=== PATIENT | female | born 1945 | race Two or more races ===

== ENCOUNTER 2019-02-27 00:53 | Inpatient (IN) | payer OTHER ==
--- NOTE | 2019-02-27 01:14 | PDOC ---
History of Present Illness - General Stated Complaint: SHAKING/VOMITING Time Seen by Provider: 02/27/19 01:13 - History of Present Illness Initial Comments: 02/27/19 01:15 Ms. Navarro is a 73 yo female w/ pmh of HTN, HLD, Dementia. Son reports that starting at 2130 this evening patient started experiencing nausea and increased confusion. She then had 5 episodes of vomiting of food she had eaten earlier today. She also has been shaking since approximately 2330 this evening and experiencing chills. The patient denies chest pain, shortness of breath, headache and dizziness. Denies fever, diarrhea and constipation. Denies dysuria, frequency, urgency and hematuria. Past History - Past Medical History Allergies/Adverse Reactions: Allergies Allergy/AdvReac Type Severity Reaction Status Date / Time No Known Allergies Allergy Verified 02/27/19 02:04 Home Medications: Ambulatory Orders Atorvastatin Ca [Lipitor] 10 mg PO HS 02/27/19 Diltiazem HCl [Diltiazem 24Hr Cd] 180 mg PO DAILY 02/27/19 Donepezil HCl [Aricept -] 5 mg PO DAILY 02/27/19 Lisinopril/Hydrochlorothiazide [Lisinopril-Hctz 10-12.5 mg Tab] 1 each PO DAILY 02/27/19 Review of Systems - Review of Systems Comments:: 02/27/19 01:18 GENERAL/CONSTITUTIONAL: +Generalized shaking w/ chills. No fever. No weakness. HEAD, EYES, EARS, NOSE AND THROAT: No change in vision. No ear pain or discharge. No sore throat. CARDIOVASCULAR: No chest pain or shortness of breath RESPIRATORY: No cough, wheezing, or hemoptysis. GASTROINTESTINAL: +N/V as described. No diarrhea or constipation. GENITOURINARY: No dysuria, frequency, or change in urination. MUSCULOSKELETAL: No joint or muscle swelling or pain. No neck or back pain. SKIN: No rash NEUROLOGIC: No headache, vertigo, loss of consciousness, or change in strength/ sensation. ENDOCRINE: No increased thirst. No abnormal weight change HEMATOLOGIC/LYMPHATIC: No anemia, easy bleeding, or history of blood clots. ALLERGIC/IMMUNOLOGIC: No hives or skin allergy. *Physical Exam - Physical Exam Comments: 02/27/19 01:18 GENERAL: Awake, alert, and fully oriented, in no acute distress HEAD: No signs of trauma, normocephalic, atraumatic EYES: PERRLA, EOMI, sclera anicteric, conjunctiva clear ENT: Auricles normal inspection, hearing grossly normal, nares patent, oropharynx clear without exudates. Moist mucosa NECK: Normal ROM, supple, no lymphadenopathy, JVD, or masses LUNGS: No distress, speaks full sentences, clear to auscultation bilaterally HEART: Regular rate and rhythm, normal S1 and S2, no murmurs, rubs or gallops, peripheral pulses normal and equal bilaterally. ABDOMEN: Soft, nontender, normoactive bowel sounds. No guarding, no rebound. No masses EXTREMITIES: Normal inspection, Normal range of motion, no edema. No clubbing or cyanosis. NEUROLOGICAL: Cranial nerves II through XII grossly intact. Normal speech, normal gait, no focal sensorimotor deficits SKIN: Warm, Dry, normal turgor, no rashes or lesions noted. ED Treatment Course - LABORATORY CBC & Chemistry Diagram: 02/27/19 01:32 02/27/19 01:32 Medical Decision Making - Medical Decision Making 02/27/19 03:24 Ms. Navarro is a 73 yo female w/ pmh as described who presents for evaluation of symptoms concerning for sepsis vs. abdominal process. Patient evaluation started with sepsis r/o including CT abd/pelvis. Initial labs concerning for sodium to 119. Hypokalemia and elevated lactate also noted. Patient will require ICU for hyponatremia. Bedside US concerning for collapsible IVC and somewhat hyperdynamic heart raising concern for hypervolemia. Patient bladder full, kidney non-specific. Gall bladder non-inflamed appearing w/out gall stones. Patient currently pending CT Abdomen/Pelvis. 02/27/19 04:11 CT negative for acute process. Patient admitted to ICU for further care. Laboratory Results - last 24 hr 02/27/19 02/27/19 02/27/19 01:32 01:32 01:32 WBC 12.5 H RBC 4.65 Hgb 12.3 Hct 36.9 MCV 79.4 L MCH 26.4 MCHC 33.2 RDW 14.2 Plt Count 297 MPV 7.6 Absolute Neuts (auto) 9.6 H Neutrophils % 77.2 Lymphocytes % 13.4 Monocytes % 8.9 Eosinophils % 0.1 Basophils % 0.4 Nucleated RBC % 0 PT with INR 13.20 H INR 1.12 H PTT (Actin FS) 34.1 VBG pH 7.54 H POC VBG pCO2 27.1 L POC VBG pO2 23.0 L VBG HCO3 22.9 L VBG O2 Sat (Navi) 48.1 L VBG Base Excess 1.5 Sodium Potassium Chloride Carbon Dioxide Anion Gap BUN Creatinine Creat Clearance w eGFR Random Glucose Lactic Acid Calcium Total Bilirubin AST ALT Alkaline Phosphatase Troponin I Total Protein Albumin Urine Color Urine Appearance Urine pH Ur Specific [place] Urine Protein Urine Glucose (UA) Urine Ketones Urine Blood Urine Nitrite Urine Bilirubin Urine Urobilinogen Ur Leukocyte Esterase Urine WBC (Auto) Urine RBC (Auto) Urine Casts (Auto) U Epithel Cells (Auto) Urine Bacteria (Auto) 02/27/19 02/27/19 02/27/19 01:32 01:32 01:32 WBC RBC Hgb Hct MCV MCH MCHC RDW Plt Count MPV Absolute Neuts (auto) Neutrophils % Lymphocytes % Monocytes % Eosinophils % Basophils % Nucleated RBC % PT with INR INR PTT (Actin FS) VBG pH POC VBG pCO2 POC VBG pO2 VBG HCO3 VBG O2 Sat (Navi) VBG Base Excess Sodium 119 L* Potassium 3.3 L Chloride 82 L Carbon Dioxide 21 Anion Gap 16 BUN 8 Creatinine 0.9 Creat Clearance w eGFR 61.38 Random Glucose 200 H Lactic Acid 5.7 H* Calcium 8.6 Total Bilirubin 1.1 H AST 28 ALT 20 Alkaline Phosphatase 113 Troponin I < 0.02 Total Protein 7.5 Albumin 3.7 Urine Color Urine Appearance Urine pH Ur Specific [place] Urine Protein Urine Glucose (UA) Urine Ketones Urine Blood Urine Nitrite Urine Bilirubin Urine Urobilinogen Ur Leukocyte Esterase Urine WBC (Auto) Urine RBC (Auto) Urine Casts (Auto) U Epithel Cells (Auto) Urine Bacteria (Auto) 02/27/19 02:59 WBC RBC Hgb Hct MCV MCH MCHC RDW Plt Count MPV Absolute Neuts (auto) Neutrophils % Lymphocytes % Monocytes % Eosinophils % Basophils % Nucleated RBC % PT with INR INR PTT (Actin FS) VBG pH POC VBG pCO2 POC VBG pO2 VBG HCO3 VBG O2 Sat (Navi) VBG Base Excess Sodium Potassium Chloride Carbon Dioxide Anion Gap BUN Creatinine Creat Clearance w eGFR Random Glucose Lactic Acid Calcium Total Bilirubin AST ALT Alkaline Phosphatase Troponin I Total Protein Albumin Urine Color Yellow Urine Appearance Clear Urine pH 5.0 Ur Specific [place] 1.015 Urine Protein Negative Urine Glucose (UA) 3+ H Urine Ketones 2+ H Urine Blood Trace Urine Nitrite Negative Urine Bilirubin Negative Urine Urobilinogen 0.2 Ur Leukocyte Esterase Negative Urine WBC (Auto) 0 Urine RBC (Auto) 2 Urine Casts (Auto) 1 U Epithel Cells (Auto) 0.3 Urine Bacteria (Auto) 1.9 *DC/Admit/Observation/Transfer Diagnosis at time of Disposition: Hyponatremia, Hypovolemia, Lactic acidosis - Discharge Dispostion Decision to Admit order: Yes - Referrals - Patient Instructions - Post Discharge Activity
[2019-02-27] MEDS ORDERED: ONDANSETRON 4 MG/2 ML VIAL IVPUSH ONE (01:22)
[2019-02-27] MEDS ORDERED: SODIUM CHLORIDE 500 ML IV STA (01:22)
[2019-02-27] MEDS ORDERED: FAMOTIDINE 20 MG/50 ML IVPB 20 MG/50 ML MG IVPB ONE (01:25)
[2019-02-27 01:47] LABS: BASO % 0.4 % (0-2.0); EOS % 0.1 % (0-4.5); HEMATOCRIT 36.9 % (32.4-45.2); HEMOGLOBIN 12.3 GM/dL (10.7-15.3); LYMPH % 13.4 % (8-40); MCH 26.4 pg (25.7-33.7); MCHC 33.2 g/dl (32.0-36.0); MEAN CELL VOLUME 79.4 fl (80-96); MEAN PLT VOLUME 7.6 fl (7.5-11.1); MONO % 8.9 % (3.8-10.2); NEUT % 77.2 % (42.8-82.8); PLATELET COUNT 297 K/MM3 (134-434); RBC 4.65 M/mm3 (3.60-5.2); RDW 14.2 % (11.6-15.6); WHITE BLOOD COUNT 12.5 K/mm3 (4.0-10.0)
[2019-02-27 01:57] LABS: VENOUS PC02 27.1 mmHg (41-51); VENOUS PH 7.54 (7.31-7.41)
[2019-02-27 02:01] LABS: INR 1.12 (0.83-1.09); PROTHROMBIN TIME (PATIENT) 13.2 SEC (9.7-13.0)
[2019-02-27 02:04] LABS: ACTIVATED PTT 34.1 SECONDS (25.2-36.5)
[2019-02-27 02:15] LABS: ALBUMIN 3.7 g/dl (3.4-5.0); ALK PHOS 113 U/L (45-117); ANION GAP 16 MMOL/L (8-16); BILIRUBIN,TOTAL 1.1 mg/dL (0.2-1); BLOOD UREA NITROGEN 8 mg/dL (7-18); CALCIUM 8.6 mg/dL (8.5-10.1); CHLORIDE 82 mmol/L (98-107); CO2 21 mmol/L (21-32); CREATININE 0.9 mg/dL (0.55-1.3); GLUCOSE,RANDOM 200 mg/dL (74-106); POTASSIUM 3.3 mmol/L (3.5-5.1); SGOT/AST 28 U/L (15-37); SGPT/ALT 20 U/L (13-61); TOT PROT 7.5 g/dl (6.4-8.2)
[2019-02-27 02:19] LABS: SODIUM 119 mmol/L (136-145)
[2019-02-27] MEDS ORDERED: KCL 10 MEQ IVPB 10 MEQ/100 ML INFUS.BAG IVPB ONE ×2 (02:31→03:46)
[2019-02-27] MEDS: KCL 10 MEQ IVPB 10 MEQ/100 ML INFUS.BAG IVPB SCH ×3 (02:44→05:20)
--- NOTE | 2019-02-27 03:04 | PDOC ---
Attending Attestation - Resident Resident Name: Jhonatan Serrano - ED Attending Attestation I have performed the following: I have examined & evaluated the patient, The case was reviewed & discussed with the resident, I agree w/resident's findings & plan, Exceptions are as noted - HPI HPI: 02/27/19 02:56 73 yo F with h/o htn hld dementia here with one day worsening confusion n/v x 4. per her son who lives with her, pt has been more confused today. she has noted to have tremors. n/v c/o epigsatric pain. no urinary complaints. no trauma. no cough no congesetion. no fevers. - Physicial Exam PE: 02/27/19 02:59 awake confused. lungs clear bilaterally heart reg tachycardia. dry mucous membranes. abd soft nt nd. ext wwp. resting tremors noted. pt alert oriented to person. skin warm and dry. moves all four ext. - Medical Decision Making 02/27/19 03:00 73 yo F with h/o ht hld dementi here with ams, confusion n/v differential includes infection such as pna, uti, electrolyte abnoramlity, cholecystitis, hypokalemia, dehydration, uti, mi, plan ct a/p cxr labs ekg septic workup iv hydration antiemetics. focused ED us RUQ, indication epigastric pain n/v gallbladder scanned in two planes. no wall thickening, no stones, normal CBD <4mm. no pericholecystic fluid. impression: normal gallbladder focused ED ultrasound renal indication n/v abd pain r/o hydro bilateral kidneys scanned using curvilinear proble no hydronephrosis noted. bladder distended. impression: no hydronephrosis, distended bladder. ED focused TTE , indication evauate cardiac function good contractility noted, hyperdynamic. no pericardial effusion. ivc completely collapses with inspiration. impression: hypovolemia, hyperdynamic contracility. plan iv hydration. presumed hypovolemic hyponatreia. will repeat na, pt will be admitted to ICU, ct a/p pending. repleat potassium. ua r/o uti, cxr negat. ekg unremakrable. Heart Score/ECG Review #1 General ECG Interpretation: Sinus Rhythm, Normal Rate (89), Normal Intervals, No acute ischemic changes
--- NOTE | 2019-02-27 03:08 | PN ---
Teaching Attending Note Name of Resident: Yoandy Thompson ATTENDING PHYSICIAN STATEMENT I saw and evaluated the patient. I reviewed the resident's note and discussed the case with the resident. I agree with the resident's findings and plan as documented. SUBJECTIVE: Patient is a 73 year old woman with PMH of HTN, HLD and Dementia. Son reports that starting at 21:30 this evening patient started experiencing nausea and increased confusion. She then had 5 episodes of vomiting of food she had eaten earlier today. She also has been shaking since approximately 23:30 this evening and experiencing chills. The patient denies chest pain, shortness of breath, headache and dizziness. Denies fever, diarrhea and constipation. Denies dysuria , frequency, urgency and hematuria. OBJECTIVE: Alert, but restless and shivering Vital Signs Period Temp Pulse Resp BP Sys/Norris Pulse Ox Last 24 Hr 97.9 F 81 18 157/114 100 HEENT: No Jaundice, eye redness or discharge, PERRLA, EOMI. Normocephalic, atraumatic. External ears are normal and hearing is grossly intact. No nasal discharge. Neck: Supple, nontender. No palpable adenopathy or thyromegaly. No JVD Chest: Good effort. Clear to auscultation and percussion. Heart: Regular. No S3, rub or murmur Abdomen: Not distended, soft, nontender and no HSM. No rebound or guarding. Normal bowel sounds. Ext: Peripheral pulses intact. No leg edema. Skin: Warm and dry. No petechiae, rash or ecchymosis. Neuro: Alert. Oriented x3. CN 2-12 grossly intact. Mild confusion. Sensation grossly intact in all four extremities and DTR are symmetric. Psych: Appropriate mood and affect. Good insight. Current Medications Generic Name Dose Route Start Last Admin Trade Name Freq PRN Reason Stop Dose Admin Potassium Chloride 10 meq in 100 mls @ 100 mls/hr 02/27/19 02:30 02/27/19 02: 44 Potassium Chloride 10 Meq Premix Ivpb - IVPB 02/27/19 05:29 100 mls/hr Q60M DULCE Administration Abnormal Lab Results 02/27/19 02/27/19 02/27/19 01:32 01:32 01:32 WBC 12.5 H MCV 79.4 L Absolute Neuts (auto) 9.6 H PT with INR 13.20 H INR 1.12 H VBG pH 7.54 H POC VBG pCO2 27.1 L POC VBG pO2 23.0 L VBG HCO3 22.9 L VBG O2 Sat (Navi) 48.1 L Sodium Potassium Chloride Random Glucose Lactic Acid Total Bilirubin 02/27/19 02/27/19 01:32 01:32 WBC MCV Absolute Neuts (auto) PT with INR INR VBG pH POC VBG pCO2 POC VBG pO2 VBG HCO3 VBG O2 Sat (Navi) Sodium 119 L* Potassium 3.3 L Chloride 82 L Random Glucose 200 H Lactic Acid 5.7 H* Total Bilirubin 1.1 H ASSESSMENT AND PLAN: 1. Sepsis - Findings consistent with sepsis, but source is unclear. Reportedly had hypothermia at Home. Gastroenteritis of an unclear etiology is likely culprit. Preliminary reading of abdomen/Pelvis CT is negative. Sepsis workup being done and will treat with IV vancomycin and zosyn pending culture report. Getting IV NS for lactic acidosis/sepsis but will adjust rate to avoid rapid rise in serum sodium. CXR shows hilar prominence, calcified aortic knob and LVH. Consult ID and GI. 2. Severe hyponatremia and hypokalemia - Etiology of severe hyponatremia is unclear. Patient's son insists she started taking Lisinopril-HCTZ only 3 days ago, but she has also been vomiting and has nausea. Unclear whether hyponatremia is chronic or acute! Was started on IV NS and IV KCL in the ER. Will check serum sodium q 4 hours to avoid rapid rise. Get serum and urine osmolarity, urine sodium, urine potassium and TSH. Associated hypophosphatemia and hypomagnesemia suggest surreptitious alcohol use which may be causing wasting of cations in the urine. Treat with IV MgSO4 and Neutraphos. Consult Nephrology. 3. Hypertension - Restart outpatient antihypertensive drugs except for Lisinopril-HCTZ, and revise regimen to ensure smooth [id number] good BP control. Nonpharmacologic measures to control hypertension like weight loss, salt restriction and exercise discussed. 4. DVT prophylaxis - Lovenox 40 mg SQ q 24 hours. 5. Advance directives - Full code
[2019-02-27 03:14] LABS: EPI CELLS 0.3 /HPF (0-5); URINE APPEARANCE CLEAR; URINE BACTERIA 1.9 /hpf (NEGATIVE); URINE BILIRUBIN NEGATIVE (NEGATIVE); URINE CASTS 1 /hpf (0-8); URINE COLOR YELLOW; URINE GLUCOSE (UA) 3+ (NEGATIVE); URINE KETONE 2+ (NEGATIVE); URINE LEUK ESTERASE NEGATIVE (NEGATIVE); URINE NITRITE NEGATIVE (NEGATIVE); URINE PROTEIN NEGATIVE (NEGATIVE); URINE RBC 2 /hpf (0-4); URINE UROBILINOGEN 0.2 mg/dL (0.2-1.0); URINE WBC 0 /hpf (0-5)
[2019-02-27] MEDS ORDERED: SODIUM CHLORIDE 1,000 ML IV STA (03:25)
--- NOTE | 2019-02-27 04:27 | CONSULT ---
Consultation: REQUESTING PROVIDER: CONSULT REQUEST: We have been asked to medically evaluate this patient for ( symptomatic hyponatremia---ICU admission). HISTORY OF PRESENT ILLNESS: Patient is a 73 year old female was brought in to the ED from home by her son after she was found to have vomiting and confusion. As per the patients son, his daughter (11 year old) called him at work around 9pm last night and mentioned her grand mother has been having nausea, vomiting and is more confused. Patient's son reached home after half an hour and found patient vomiting-4 episodes, non bloody, non bilious, containing food particles, she was complaining of nausea, abdominal pain, chest pain and shortness of breath. Temperature at home was 96.2 F twice. He gave her Gasex and water but she couldn 't tolerate. Hence brought in to the ED for further evaluation. Patient has a h/o dementia, has short term memory loss since 1-2 years, saw Dr. Ramirez last week and was started on Donepezil. She was also seen by her primary physician last week and dose of Cardizem was increased from 120-180 mg and Lisinopril/HCTZ was added x 3 days ago. Bowel/Bladder habit normal. Sleep/Appetite normal. Drinks about 1 L of water/day. On arrival to the ED, patient was afebrile, labs significant for hyponatremia Na of 119, K-3.3, Lactic acid 5.7. Was given 2 L of IV Normal Saline, Zofran in the ED then brought in to the ICU for further management. As per ED physician they did a bedside ultrasound, found collapsable IVC. Was given 2L of Normal Saline. Upon assessment in ICU, patient is confused (difficult to assess as patient has baseline dementia), as per son who is at bed side, she is more confused. Patient is still nauseaous. Denies headache, blurring of vision, tingling, numbness, any focal neurological deficits, chest pain, shortness of breath, palpitations, abdominal pain. Stat labs ordered. If sodium is not improving, will discuss case with Nephrology and start the patient on Hypertonic Saline. PAST MEDICAL HISTORY: Hypertension, HLD, Dementia ALLERGIES: NKDA PAST SURGICAL HISTORY: None reported SOCIAL HISTORY: Smoking- Never smoked Alcohol- Rarely Drugs- Denies OCCUPATION: Retired [employer] (2010) TRAVEL: Not travelled recently. REVIEW OF SYSTEMS: CONSTITUTIONAL: Absent: fever, chills, diaphoresis, generalized weakness, malaise, loss of appetite, weight change HEENT: Absent: rhinorrhea, nasal congestion, throat pain, throat swelling, difficulty swallowing, mouth swelling, ear pain, eye pain, visual changes CARDIOVASCULAR: Absent: chest pain, syncope, palpitations, irregular heart rate, lightheadedness , peripheral edema RESPIRATORY: Absent: cough, shortness of breath, dyspnea with exertion, orthopnea, wheezing, stridor, hemoptysis GASTROINTESTINAL: Present: nausea, vomiting Absent: abdominal pain, abdominal distension, , diarrhea, constipation, melena, hematochezia GENITOURINARY: Absent: dysuria, frequency, urgency, hesitancy, hematuria, flank pain, genital pain MUSCULOSKELETAL: Absent: myalgia, arthralgia, joint swelling, back pain, neck pain SKIN: Absent: rash, itching, pallor HEMATOLOGIC/IMMUNOLOGIC: Absent: easy bleeding, easy bruising, lymphadenopathy, frequent infections ENDOCRINE: Absent: unexplained weight gain, unexplained weight loss, heat intolerance, cold intolerance NEUROLOGIC: Present: Confused. Absent: headache, focal weakness or paresthesias, dizziness, unsteady gait, seizure, mental status changes, bladder or bowel incontinence PSYCHIATRIC: Absent: anxiety, depression, suicidal or homicidal ideation, hallucinations. PHYSICAL EXAMINATION Vital Signs - 24 hr 02/27/19 02/27/19 02/27/19 01:00 01:19 04:06 Temperature 97.9 F 97.2 F L Pulse Rate 81 Respiratory 18 Rate Blood Pressure 157/114 H O2 Sat by Pulse 100 99 Oximetry (%) GENERAL: Elderly female, lying in bed, nausea, Awake, alert, and oriented x 3, in no acute distress. EYES: EOM intact, no pallor or icterus. EARS, NOSE, THROAT: Dry mucous membranes. NECK: Supple, No JVD. LUNGS: B/L breath sounds equal, no added sounds. HEART: Regular rate and rhythm, normal S1 and S2 without murmur. ABDOMEN: Soft, nontender, no organomegaly, BS +. MUSCULOSKELETAL: No CVA tenderness. UPPER EXTREMITIES: No peripheral edema. LOWER EXTREMITIES: No peripheral edema. NEUROLOGICAL: No facial drop, power 5/5 in all extremities, sensation intact. Cranial nerves II-XII intact. Normal speech. Gait not observed. PSYCHIATRIC: Cooperative. Poor eye contact. SKIN: No lesions or rashes. Laboratory Results - last 24 hr 02/27/19 02/27/19 02/27/19 01:32 01:32 01:32 WBC 12.5 H RBC 4.65 Hgb 12.3 Hct 36.9 MCV 79.4 L MCH 26.4 MCHC 33.2 RDW 14.2 Plt Count 297 MPV 7.6 Absolute Neuts (auto) 9.6 H Neutrophils % 77.2 Lymphocytes % 13.4 Monocytes % 8.9 Eosinophils % 0.1 Basophils % 0.4 Nucleated RBC % 0 PT with INR 13.20 H INR 1.12 H PTT (Actin FS) 34.1 VBG pH 7.54 H POC VBG pCO2 27.1 L POC VBG pO2 23.0 L VBG HCO3 22.9 L VBG O2 Sat (Navi) 48.1 L VBG Base Excess 1.5 Sodium Potassium Chloride Carbon Dioxide Anion Gap BUN Creatinine Creat Clearance w eGFR Random Glucose Lactic Acid Calcium Total Bilirubin AST ALT Alkaline Phosphatase Troponin I Total Protein Albumin Urine Color Urine Appearance Urine pH Ur Specific [place] Urine Protein Urine Glucose (UA) Urine Ketones Urine Blood Urine Nitrite Urine Bilirubin Urine Urobilinogen Ur Leukocyte Esterase Urine WBC (Auto) Urine RBC (Auto) Urine Casts (Auto) U Epithel Cells (Auto) Urine Bacteria (Auto) 02/27/19 02/27/19 02/27/19 01:32 01:32 01:32 WBC RBC Hgb Hct MCV MCH MCHC RDW Plt Count MPV Absolute Neuts (auto) Neutrophils % Lymphocytes % Monocytes % Eosinophils % Basophils % Nucleated RBC % PT with INR INR PTT (Actin FS) VBG pH POC VBG pCO2 POC VBG pO2 VBG HCO3 VBG O2 Sat (Navi) VBG Base Excess Sodium 119 L* Potassium 3.3 L Chloride 82 L Carbon Dioxide 21 Anion Gap 16 BUN 8 Creatinine 0.9 Creat Clearance w eGFR 61.38 Random Glucose 200 H Lactic Acid 5.7 H* Calcium 8.6 Total Bilirubin 1.1 H AST 28 ALT 20 Alkaline Phosphatase 113 Troponin I < 0.02 Total Protein 7.5 Albumin 3.7 Urine Color Urine Appearance Urine pH Ur Specific [place] Urine Protein Urine Glucose (UA) Urine Ketones Urine Blood Urine Nitrite Urine Bilirubin Urine Urobilinogen Ur Leukocyte Esterase Urine WBC (Auto) Urine RBC (Auto) Urine Casts (Auto) U Epithel Cells (Auto) Urine Bacteria (Auto) 02/27/19 02:59 WBC RBC Hgb Hct MCV MCH MCHC RDW Plt Count MPV Absolute Neuts (auto) Neutrophils % Lymphocytes % Monocytes % Eosinophils % Basophils % Nucleated RBC % PT with INR INR PTT (Actin FS) VBG pH POC VBG pCO2 POC VBG pO2 VBG HCO3 VBG O2 Sat (Navi) VBG Base Excess Sodium Potassium Chloride Carbon Dioxide Anion Gap BUN Creatinine Creat Clearance w eGFR Random Glucose Lactic Acid Calcium Total Bilirubin AST ALT Alkaline Phosphatase Troponin I Total Protein Albumin Urine Color Yellow Urine Appearance Clear Urine pH 5.0 Ur Specific [place] 1.015 Urine Protein Negative Urine Glucose (UA) 3+ H Urine Ketones 2+ H Urine Blood Trace Urine Nitrite Negative Urine Bilirubin Negative Urine Urobilinogen 0.2 Ur Leukocyte Esterase Negative Urine WBC (Auto) 0 Urine RBC (Auto) 2 Urine Casts (Auto) 1 U Epithel Cells (Auto) 0.3 Urine Bacteria (Auto) 1.9 Active Medications Generic Name Dose Route Start Last Admin Trade Name Freq PRN Reason Stop Dose Admin Potassium Chloride 10 meq in 100 mls @ 100 mls/hr 02/27/19 02:30 02/27/19 03: 59 Potassium Chloride 10 Meq Premix Ivpb - IVPB 02/27/19 05:29 100 mls/hr Q60M DULCE Administration ASSESSMENT/PLAN: Patient is a 73 year old female with past medical history of Hypertension, HLD, Dementia was brought in to the ED from home by her son after she was found to have nasuea, vomiting and more confused. # Symptomatic hyponatremia Presented with nausea, vomiting x 4 episodes. Could be secondary to HCTZ use which was started 3 days ago. Na 119 on arrival. Was given 2 L of Normal saline in the ED for dehydration given low sodium, lactic acidosis, dry mucus membranes Admitted in ICU Stat labs ordered. Depending on the repeat sodium, if it is not improving, will discuss case with Nephrology and start the patient on Hypertonic saline For now, hold IVF until the results of repeat lab work, serum osm/urine osm/ urine electrolytes ordered Discontinue HCTZ Keep NPO IV Zofran 4 mg Q6H PRN for nausea (Normal Qtc) White for I's and O's. Since admission, urinary output is 900 mls # Hypertensive emergency On arrival to the ICU, patient's BP was 180/120 mmhg on repeated Bp checks, son mentioned patient gets anxious. High Bp could be from anxiety, abdominal pain, vomiting Gave IV Labetolol 10mg with slight improvement in BP Significant change in diastolic BP when measured bilaterally. Plan is to check BP manually and if it is still elevated to start nicardipine drip and to do a CTA to r/o aortic dissection. # Lactic acidosis Lactic acid 5.7, could be from dehydration. However, would like to r/o infection. Patient is afebrile, leukocytosis of 12.1 Blood cultures/urine cultures sent. Repeat Lactic acid one dose of IV Vancomycin 1250 mg and IV Zosyn 3.375 mg ordered. # Hypokalemia/Hypophosphatemia/Hypomagnesemia Electrolyte imbalance could be from HCTZ use K-3.3. Was given K riders Mg-1.3; Phos-2.2, IV Mag 2gm and IV Phos ordered. Repeat labs at 10 am. # Chest pain Patient started complaining of chest pain upon arrival to the ICU. IV Morphine 2 mg given. Repeat trops pending # Abdominal pain c/o Epigastric burning IV Protonix given one dose, will continue. Abdominal/Pelvis CT done, report pending. # Dementia On Donepezil, Hold as patient is NPO # FEN Hold fluids until repeat Sodium Electrolytes Repleted, repeat labs at 10am NPO # Prophylaxis For DVT: Heparin 5000 IU sq TID For GI: On IV Protonix 40mg # Code Status: Full Code # Dispo: Continue to monitor in ICU. Illness, Investigation and plan of care explained to the patient's son. He verbalized understanding. Case discussed with Dr. Almonte. Dispo: We will continue to follow the patient. Thank you for this consultative opportunity.
[2019-02-27] MEDS ORDERED: ONDANSETRON 4 MG/2 ML VIAL IVPB PRN (05:11)
[2019-02-27] MEDS ORDERED: ONDANSETRON 4 MG/2 ML VIAL IVPUSH PRN (05:28)
--- NOTE | 2019-02-27 05:42 | HP ---
CHIEF COMPLAINT:confusion , vomiting PCP: HISTORY OF PRESENT ILLNESS: Patient is a 73 year old female was brought in to the ED from home by her son after she was found to have vomiting and confusion. As per the patients son, his daughter (11 year old) called him at work around 9pm last night and mentioned her grand mother has been having nausea, vomiting and is more confused. Patient's son reached home after half an hour and found patient vomiting-4 episodes, non bloody, non bilious, containing food particles, she was complaining of nausea, abdominal pain, chest pain and shortness of breath. Temperature at home was 96.2 F twice. He gave her Gasex and water but she couldn 't tolerate. Hence brought in to the ED for further evaluation. Patient has a h/o dementia, has short term memory loss since 1-2 years, saw Dr. Ramirez last week and was started on Donepezil. She was also seen by her primary physician last week and dose of Cardizem was increased from 120-180 mg and Lisinopril/HCTZ was added x 3 days ago. Bowel/Bladder habit normal. Sleep/Appetite normal. Drinks about 1 L of water/day. On arrival to the ED, patient was afebrile, labs significant for hyponatremia Na of 119, K-3.3, Lactic acid 5.7. Was given 2 L of IV Normal Saline, Zofran in the ED then brought in to the ICU for further management. As per ED physician they did a bedside ultrasound, found collapsable IVC. Was given 2L of Normal Saline. Upon assessment in ICU, patient is confused (difficult to assess as patient has baseline dementia), as per son who is at bed side, she is more confused. Patient is still nauseaous. Denies headache, blurring of vision, tingling, numbness, any focal neurological deficits, chest pain, shortness of breath, palpitations, abdominal pain. Stat labs ordered. If sodium is not improving, will discuss case with Nephrology and start the patient on Hypertonic Saline. Recent Travel:denies PAST MEDICAL HISTORY: as per HPI HTN , HLD, Dementia PAST SURGICAL HISTORY: none Social History: Smoking:denies Alcohol:denies Drugs: denies Family History:none Allergies No Known Allergies Allergy (Verified 02/27/19 02:04) HOME MEDICATIONS: Home Medications Medication Instructions Recorded Atorvastatin Ca [Lipitor] 10 mg PO HS 02/27/19 Diltiazem HCl [Diltiazem 24Hr Cd] 180 mg PO DAILY 02/27/19 Donepezil HCl [Aricept -] 5 mg PO DAILY 02/27/19 Lisinopril/Hydrochlorothiazide 1 each PO DAILY 02/27/19 [Lisinopril-Hctz 10-12.5 mg Tab] REVIEW OF SYSTEMS CONSTITUTIONAL: Absent: fever, chills, diaphoresis, generalized weakness, malaise, loss of appetite, weight change HEENT: Absent: rhinorrhea, nasal congestion, throat pain, throat swelling, difficulty swallowing, mouth swelling, ear pain, eye pain, visual changes CARDIOVASCULAR: Absent: chest pain, syncope, palpitations, irregular heart rate, lightheadedness , peripheral edema RESPIRATORY: Absent: cough, shortness of breath, dyspnea with exertion, orthopnea, wheezing, stridor, hemoptysis GASTROINTESTINAL: Absent: abdominal pain, abdominal distension, nausea, vomiting, diarrhea, constipation, melena, hematochezia GENITOURINARY: Absent: dysuria, frequency, urgency, hesitancy, hematuria, flank pain, genital pain MUSCULOSKELETAL: Absent: myalgia, arthralgia, joint swelling, back pain, neck pain SKIN: Absent: rash, itching, pallor HEMATOLOGIC/IMMUNOLOGIC: Absent: easy bleeding, easy bruising, lymphadenopathy, frequent infections ENDOCRINE: Absent: unexplained weight gain, unexplained weight loss, heat intolerance, cold intolerance NEUROLOGIC: Absent: headache, focal weakness or paresthesias, dizziness, unsteady gait, seizure, mental status changes, bladder or bowel incontinence PSYCHIATRIC: Absent: anxiety, depression, suicidal or homicidal ideation, hallucinations. PHYSICAL EXAMINATION Vital Signs - 24 hr 02/27/19 02/27/19 02/27/19 01:00 01:19 04:06 Temperature 97.9 F 97.2 F L Pulse Rate 81 Respiratory 18 Rate Blood Pressure 157/114 H O2 Sat by Pulse 100 99 Oximetry (%) 02/27/19 05:19 Temperature 97.2 F L Pulse Rate 80 Respiratory 18 Rate Blood Pressure 160/98 O2 Sat by Pulse 99 Oximetry (%) GENERAL: AAOx0 in moderate distress , confuse , but follow commands , HEAD: NC/AT EYES: EOMI, Conjunctiva clear, sclera anicteric ENT: dry mucous membrane , soft tissue mass in her upper palate NECK: Supple, no JVD LUNGS: CTA B/L, no crackles no wheezing no accessory muscle use. HEART: Sinus tachy , NSR, normal s1, s2, no M/R/G ABDOMEN: Soft, ND, NT, +BS 4 Q, no CVA Tenderness LOWER EXTREMITIES: no edema, +2DP pulse, NEUROLOGICAL: No focal deficit. gait not observed.CNII-CNXII grossly intact , strength 5/5 upper and lower ext , sensation intact , PSYCHIATRIC: Cooperative. follow commands SKIN: Warm, dry, Laboratory Results - last 24 hr 02/27/19 02/27/19 02/27/19 01:32 01:32 01:32 WBC 12.5 H RBC 4.65 Hgb 12.3 Hct 36.9 MCV 79.4 L MCH 26.4 MCHC 33.2 RDW 14.2 Plt Count 297 MPV 7.6 Absolute Neuts (auto) 9.6 H Neutrophils % 77.2 Lymphocytes % 13.4 Monocytes % 8.9 Eosinophils % 0.1 Basophils % 0.4 Nucleated RBC % 0 PT with INR 13.20 H INR 1.12 H PTT (Actin FS) 34.1 VBG pH 7.54 H POC VBG pCO2 27.1 L POC VBG pO2 23.0 L VBG HCO3 22.9 L VBG O2 Sat (Navi) 48.1 L VBG Base Excess 1.5 Sodium Potassium Chloride Carbon Dioxide Anion Gap BUN Creatinine Creat Clearance w eGFR Random Glucose Lactic Acid Calcium Total Bilirubin AST ALT Alkaline Phosphatase Troponin I Total Protein Albumin Urine Color Urine Appearance Urine pH Ur Specific [place] Urine Protein Urine Glucose (UA) Urine Ketones Urine Blood Urine Nitrite Urine Bilirubin Urine Urobilinogen Ur Leukocyte Esterase Urine WBC (Auto) Urine RBC (Auto) Urine Casts (Auto) U Epithel Cells (Auto) Urine Bacteria (Auto) 02/27/19 02/27/19 02/27/19 01:32 01:32 01:32 WBC RBC Hgb Hct MCV MCH MCHC RDW Plt Count MPV Absolute Neuts (auto) Neutrophils % Lymphocytes % Monocytes % Eosinophils % Basophils % Nucleated RBC % PT with INR INR PTT (Actin FS) VBG pH POC VBG pCO2 POC VBG pO2 VBG HCO3 VBG O2 Sat (Navi) VBG Base Excess Sodium 119 L* Potassium 3.3 L Chloride 82 L Carbon Dioxide 21 Anion Gap 16 BUN 8 Creatinine 0.9 Creat Clearance w eGFR 61.38 Random Glucose 200 H Lactic Acid 5.7 H* Calcium 8.6 Total Bilirubin 1.1 H AST 28 ALT 20 Alkaline Phosphatase 113 Troponin I < 0.02 Total Protein 7.5 Albumin 3.7 Urine Color Urine Appearance Urine pH Ur Specific [place] Urine Protein Urine Glucose (UA) Urine Ketones Urine Blood Urine Nitrite Urine Bilirubin Urine Urobilinogen Ur Leukocyte Esterase Urine WBC (Auto) Urine RBC (Auto) Urine Casts (Auto) U Epithel Cells (Auto) Urine Bacteria (Auto) 02/27/19 02:59 WBC RBC Hgb Hct MCV MCH MCHC RDW Plt Count MPV Absolute Neuts (auto) Neutrophils % Lymphocytes % Monocytes % Eosinophils % Basophils % Nucleated RBC % PT with INR INR PTT (Actin FS) VBG pH POC VBG pCO2 POC VBG pO2 VBG HCO3 VBG O2 Sat (Navi) VBG Base Excess Sodium Potassium Chloride Carbon Dioxide Anion Gap BUN Creatinine Creat Clearance w eGFR Random Glucose Lactic Acid Calcium Total Bilirubin AST ALT Alkaline Phosphatase Troponin I Total Protein Albumin Urine Color Yellow Urine Appearance Clear Urine pH 5.0 Ur Specific [place] 1.015 Urine Protein Negative Urine Glucose (UA) 3+ H Urine Ketones 2+ H Urine Blood Trace Urine Nitrite Negative Urine Bilirubin Negative Urine Urobilinogen 0.2 Ur Leukocyte Esterase Negative Urine WBC (Auto) 0 Urine RBC (Auto) 2 Urine Casts (Auto) 1 U Epithel Cells (Auto) 0.3 Urine Bacteria (Auto) 1.9 CBC, BMP 02/27/19 01:32 02/27/19 01:32 ASSESSMENT/PLAN: Patient is a 73 year old woman with PMH of HTN, HLD and Dementia. Son reports that starting at 21:30 this evening patient started experiencing nausea and increased confusion. She then had 5 episodes of vomiting of food she had eaten earlier today. She also has been shaking since approximately 23:30 this evening and experiencing chills. admitted to icu for sever hyponatremia , ams and sever sepsis # severe sepsis * mccall cx * IV fluids * Vanco/zosyn * maintain BP * maintain o2 sat * Monitor in ICU * LA elevated , trend * zofran for nausea #sever Hyponatremia(Acute vs chronic ) , hypokalemia, Hypophosphatemia , hypomagnesia R.O SIADH vs meds SE * Na 119, corrected 117 * hypovolemic hyponatremic * IV fluids * KCl 10 Meq given in ED * repeat NA level Q 2 hr * Neuro check Q 2 hr * NA correction 4-6 meq in the first 24 hours * daily weight * I&O , urine out put , * DC HCTZ * P 2.2 replenish as needed * MG 1.2 replenish as needed * # Acute metabolic encephalopathy likely due to Electrolytes imbalance and sepsis vs worsening dementia * ABx and IV fluids * Aspiration precautions * Monitor in ICU * Nephroloy consult * neuro chek Q 2 hr * Neuroconsult # HTN * Hypertensive * will hold meds for now as pt is septic and BP might drop * monitor BP closely # Dementia * on Aricept hold for now # HLD * cont home meds when able to take po and hemodynamically stable # FEN * F: given IN ED 2l NS * E: monitor electrolytes closely * N: NPO # Proph * Dvts":SCDS, Hep SQ TID * PPI 40 IV daily # dispo * monitor in ICU icu Visit type - Emergency Visit Emergency Visit: Yes ED Registration Date: 02/27/19 Care time: The patient presented to the Emergency Department on the above date and was hospitalized for further evaluation of their emergent condition. - New Patient This patient is new to me today: Yes Date on this admission: 02/27/19 - Critical Care Critical Care patient: Yes Total Critical Care Time (in minutes): 45 Critical Care Statement: The care of this patient involved high complexity decision making to prevent further life threatening deterioration of the patient 's condition and/or to evaluate & treat vital organ system(s) failure or risk of failure.
[2019-02-27 05:45] LABS: MAGNESIUM 1.3 mg/dL (1.8-2.4); PHOSPHOROUS 2.2 mg/dL (2.5-4.9)
[2019-02-27] MEDS ORDERED: MAGNESIUM 2GM/50ML STERILE WATER IVPB IVPB ONE (05:46)
[2019-02-27] MEDS ORDERED: PANTOPRAZOLE SODIUM 40 MG VIAL IVPUSH ONE (05:49)
[2019-02-27] MEDS ORDERED: POTASSIUM PHOSPHATE 40 MM in DEXTROSE 5%-WATER - 500 ML IVPB ONE (05:49)
[2019-02-27] MEDS ORDERED: MORPHINE SULFATE 2 MG/ML VIAL IVPUSH ONE (05:50)
[2019-02-27] MEDS ORDERED: MORPHINE SULFATE 2 MG/ML VIAL ONE (05:53)
[2019-02-27] MEDS ORDERED: VANCOMYCIN HCL 1,250 MG in DEXTROSE 5%-WATER - 250 ML IVPB ONE (06:03)
[2019-02-27] MEDS ORDERED: PIPERACILLIN/TAZOB 3.375 GM 3.375 GM in DEXTROSE 5%-WATER - 50 ML IVPB ONE (06:03)
[2019-02-27] MEDS ORDERED: LABETALOL HCL 5 MG/1 ML (100MG/20 ML VIAL) IVPUSH ONE (06:39)
[2019-02-27 06:43] LABS: INR 1.13 (0.83-1.09); PROTHROMBIN TIME (PATIENT) 13.4 SEC (9.7-13.0)
[2019-02-27] MEDS ORDERED: LABETALOL HCL 5 MG/1 ML (100MG/20 ML VIAL) ONE (06:43)
[2019-02-27 06:55] LABS: HEMATOCRIT 37.7 % (32.4-45.2); HEMOGLOBIN 12.5 GM/dL (10.7-15.3); MCH 25.8 pg (25.7-33.7); MCHC 33.1 g/dl (32.0-36.0); MEAN CELL VOLUME 78.1 fl (80-96); MEAN PLT VOLUME 8.1 fl (7.5-11.1); PLATELET COUNT 298 K/MM3 (134-434); RBC 4.83 M/mm3 (3.60-5.2); RDW 14.1 % (11.6-15.6); WHITE BLOOD COUNT 13.6 K/mm3 (4.0-10.0)
[2019-02-27] MEDS ORDERED: HEPARIN NA (PORCINE) 5,000 UNITS/ML 1ML VIAL SQ SCH (07:00)
[2019-02-27] MEDS ORDERED: NICARDIPINE 25 MG in DEXTROSE 5%-WATER - 240 ML IVPB SCH (07:00)
[2019-02-27 07:43] LABS: ANION GAP 15 MMOL/L (8-16); BLOOD UREA NITROGEN 6 mg/dL (7-18); CALCIUM 8.6 mg/dL (8.5-10.1); CHLORIDE 86 mmol/L (98-107); CO2 20 mmol/L (21-32); CREATININE 0.9 mg/dL (0.55-1.3); GLUCOSE,RANDOM 148 mg/dL (74-106); LIPASE 170 U/L (73-393); MAGNESIUM 1.6 mg/dL (1.8-2.4); PHOSPHOROUS 2.1 mg/dL (2.5-4.9); POTASSIUM 4.1 mmol/L (3.5-5.1); SODIUM 120 mmol/L (136-145)
[2019-02-27] MEDS ORDERED: SODIUM CHLORIDE 1,000 ML IV SCH (09:30)
[2019-02-27] MEDS: PANTOPRAZOLE SODIUM 40 MG VIAL IVPUSH SCH (09:43)
--- NOTE | 2019-02-27 09:43 | PN ---
Progress Note (short form) - Note Progress Note: S: Pt seen and examined this AM. She states she is feeling better today though is unable to fully explain why she is here or what hospital she is in. Pt is having some confusion which the son states is not her baseline. O: Last Vital Signs Temp Pulse Resp BP Pulse Ox 97.3 F L 64 22 H 130/108 H 99 02/27/19 07:00 02/27/19 08:00 02/27/19 08:00 02/27/19 08:00 02/27/19 05:19 GEN: Awake and alert, oriented to self and type of building but not specific HEENT: PERRL, dry mucus membranes NECK: supple, nontender, nonenlarged HEART: RRR, no murmurs noted LUNGS: CTA b/l ABDOMEN: Soft, nontender EXTREMITIES: no peripheral edema NEURO: CN grossly in tact A/P: 73 year old female with past medical history of Hypertension, HLD, Dementia Admitted to the ICU for severe symptomatic Hyponatremia NEURO: -Symptomatic Hyponatremia Renal Consult appreciated 3% Saline @ 30 cc/hr BMP Q4 hours DDAVP 1 mcg Q8H Monitor for rapid correction and hold 3% if correcting too quickly -Dimentia Monitor for return to baseline CARDIO: -CV stable -HTN Continue home Diltiazem Hold lisinopril/HCTZ for now GI: -Nausea vomiting from undetermined source Hold off Zofran as n/v improving and QTc prolonged, monitor QTc if requires anti-emetic ENDOCRINE: -Monitor for endocrine causes of Hyponatremia -TSH low Monitor free T4 level Pt with no clinical signs of myxedema coma RENAL: -HypoNatremia as above FEN: -3% Saline @ 30 cc/hr, monitor to prevent rapid correction -monitor and replete -NPO PROPHYLAXIS: -Lovenox 40 mg SQ Daily DISPOSITION: Continue to monitor in the ICU
[2019-02-27] MEDS ORDERED: PT OWN MED DRAWER 7, Y5N ONE (09:46)
--- NOTE | 2019-02-27 09:57 | EKG ---
Test Reason : Blood Pressure : / mmHG Vent. Rate : 089 BPM Atrial Rate : 089 BPM P-R Int : 186 ms QRS Dur : 100 ms QT Int : 376 ms P-R-T Axes : 074 086 057 degrees QTc Int : 457 ms NORMAL SINUS RHYTHM NONSPECIFIC ST ABNORMALITY ABNORMAL ECG NO PREVIOUS ECGS AVAILABLE Confirmed by MARQUIS NEVILLE, ROBYN ([id number]) on 02/27/2019 9:57:19 AM Referred By: Confirmed By:ROBYN CHO MD
[2019-02-27] MEDS: MUPIROCIN 2% TOPICAL OINTMENT FOR DECOLONIZATION NS SCH ×2 (10:01→22:35)
[2019-02-27] MEDS: ENOXAPARIN NA (PORCINE) 40 MG/0.4 ML DISP.SYRIN SQ SCH (10:01)
--- NOTE | 2019-02-27 10:03 | PN ---
Progress Note (short form) - Note Progress Note: ID consult dictated 73 yo female with HTN and dementia admitted with acute onset of vomiting multiple times at home, "shaking", hypothermia at home-temp 96 no documented fevers no diarrhea no travel had a cold last week recent med adjustments include increase diltazem added atorvastin added aricept 3 days ago added lisinopril/hctz as well +lactic acidosis +hypothermia +hyponatremia hypokalemia etiology of her symptoms not clear ct scan prelim negative abdominal exam benign son at bedside reports mental status at baseline cannot r/o sepsis with hypothermia and lactic acidosis unclear if vomiting due to recent meds, ?aricept, ?viral, ?food- but no one else at home with vomiting- they ate the same food bp mds most likely contributed to hyponatremia agree with cultures given zosyn this am would switch to rocephin and f/u cultures f/u reading of ct scan correct hyponatremia Problem List - Problems (1) Vomiting Code(s): R11.10 - VOMITING, UNSPECIFIED (2) Lactic acidosis Code(s): E87.2 - ACIDOSIS (3) Hyponatremia Code(s): E87.1 - HYPO-OSMOLALITY AND HYPONATREMIA
[2019-02-27] MEDS ORDERED: SODIUM CHLORIDE 3% 500 ML/500 ML INFUS.BAG IV ONE ×3 (10:18→22:29)
[2019-02-27] MEDS ORDERED: DESMOPRESSIN ACETATE 4 MCG/ML AMP IVPB ONE (10:19)
--- NOTE | 2019-02-27 10:39 | CONSULT ---
Consult - text type - Consultation Consultation Note: Renal Consult for Hyponatremia This is a 73 year old woman with hx of Hypertension, Hyperlipidemia and Dementia who presented from home with AMS and Nausea with hyponatremia with serum sodium of 118. Son at the bedside who provided history. Pt was at her baseline MS 2 days prior (oriented x 2) but was confused and having N/V yesterday. Pt without hx of hyponatremia. Pt was recently started on serval anithypertensives recently including Lisinopril/HCTZ. Pt is in the ICU. S/p NS 1000cc in ED. Na improved to 120 but pt still not at baseline mental status. No CP, Abd pain, fever. Lactic acid is elevated. PMhx: as above Allergies: NKDA Family Hx: NC Social Hx: No T/A/D ROS: as per HPI Home Medications Medication Instructions Recorded Atorvastatin Ca [Lipitor] 10 mg PO HS 02/27/19 Diltiazem HCl [Diltiazem 24Hr Cd] 180 mg PO DAILY 02/27/19 Donepezil HCl [Aricept -] 5 mg PO DAILY 02/27/19 Lisinopril/Hydrochlorothiazide 1 each PO DAILY 02/27/19 [Lisinopril-Hctz 10-12.5 mg Tab] Vital Signs Temperature 97.3 F L 02/27/19 07:00 Pulse Rate 68 02/27/19 10:00 Respiratory Rate 158 H 02/27/19 10:00 Blood Pressure 179/149 H 02/27/19 10:00 O2 Sat by Pulse Oximetry (%) 99 02/27/19 05:19 Intake & Output 02/24/19 02/25/19 02/26/19 02/27/19 23:59 23:59 23:59 23:59 Intake Total 150 Output Total 1350 Balance -1200 Weight 48.3 kg NAD awake and alert but confused neck supple, no JVD MMM RRR, no M/R CTA soft NT/ND no LE edema, clubbing or cyanosis CBC, BMP 02/27/19 05:30 Current Medications Chlorhexidine Gluconate (Hibiclens For Decolonization -) 1 applic TP HS [facility] Desmopressin Acetate (Ddavp Injection -) 1 mcg IVPB ONCE ONE Stop: 02/27/19 10:20 Enoxaparin Sodium (Lovenox -) 40 mg SQ DAILY [facility] Last Admin: 02/27/19 10:01 Dose: 40 mg Potassium Phosphate 40 mm/ (Dextrose) 513.3333 mls @ 85.556 mls/hr IVPB ONCE ONE Stop: 02/27/19 11:48 Last Admin: 02/27/19 07:57 Dose: 85.556 mls/hr Sodium Chloride (Normal Saline -) 1,000 mls @ 100 mls/hr IV ASDIR [facility] Last Admin: 02/27/19 09:42 Dose: 100 mls/hr Sodium Chloride (Sodium Chloride 3%) 500 ml in 500 mls @ 30 mls/hr IV ASDIR ONE Stop: 02/28/19 02:57 Mupirocin (Bactroban Ointment (For Decolonization) -) 1 applic NS BID [facility] Stop: 03/04/19 09:59 Last Admin: 02/27/19 10:01 Dose: 1 applic Ondansetron HCl (Zofran Injection) 4 mg IVPUSH Q6H PRN PRN Reason: NAUSEA Pantoprazole Sodium (Protonix Iv) 40 mg IVPUSH DAILY [facility] Last Admin: 02/27/19 09:43 Dose: 40 mg 73 year old woman with hx of Hypertension, Hyperlipidemia and Dementia who presented from home with AMS and Nausea with hyponatremia with serum sodium of 118 #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) #Altered Mental status #Hypertension #Lactic acidosis #Hyperlipidemia Given mental status is not at baseline will start hypertonic saline will start at 30cc per, will also given DDAVP 1mcg Q8h to ensure there is not excessive correction Trend serum na Q4-6 hours and titrate as needed to active improvement of Na of ~ 8 in 24 hours Would give oral antihypertensvies (lisopril, diltiazem) and montior BP Goal BP < 150/100 Check CK levels (r/o rhabdo, ? shaking being seizures at home) Trend lactic acid levels hold statin pending CK levels Thank you Will follow Walter Yates DO
[2019-02-27 10:48] LABS: ALBUMIN 3.1 g/dl (3.4-5.0); ALK PHOS 102 U/L (45-117); ANION GAP 9 MMOL/L (8-16); BLOOD UREA NITROGEN 7 mg/dL (7-18); CALCIUM 7.9 mg/dL (8.5-10.1); CHLORIDE 86 mmol/L (98-107); CO2 24 mmol/L (21-32); CREATININE 0.7 mg/dL (0.55-1.3); GLUCOSE,RANDOM 206 mg/dL (74-106); MAGNESIUM 3.3 mg/dL (1.8-2.4); N-TERMINAL BNP 779.3 pg/ml (5-125); PHOSPHOROUS 4.1 mg/dL (2.5-4.9); POTASSIUM 3.9 mmol/L (3.5-5.1); SGOT/AST 33 U/L (15-37); SGPT/ALT 19 U/L (13-61); TOT PROT 6.5 g/dl (6.4-8.2)
[2019-02-27 10:55] LABS: SODIUM 119 mmol/L (136-145)
[2019-02-27 11:12] LABS: OSMOLALITY,SERUM 253 mosm/kg (278-305)
--- NOTE | 2019-02-27 11:18 | PN ---
Physical Exam: SUBJECTIVE: Patient seen and examined at bedside. No overnight events. No new complaints. As per son at bedside, less confused than on admission. Not at baseline.Continues to have nausea and NBNB vomiting. Denies CP,DIAMOND,SOB, palpitations, abdominal pain, fever or chills. OBJECTIVE: Vital Signs Period Temp Pulse Resp BP Sys/Norris Pulse Ox Last 24 Hr 97.2 F-97.9 F 64-92 18-158 130-180/67-149 99-100 GENERAL: Awake and alert, mild distress. HEAD: NCAT EYES: PERRL, EOMI, sclera anicteric, conjunctiva clear. No ptosis. ENT: moist mucous membranes. NECK: Trachea midline, full range of motion, supple. LUNGS: CTAB, no wheezes, no crackles, no accessory muscle use. HEART: RRR, S1, S2 without murmur, rub or gallop. ABDOMEN: Soft, NTND, NABS, no guarding, no rebound, no hepatosplenomegaly, no masses. EXTREMITIES: 2+ pulses, warm, well-perfused, no edema. NEUROLOGICAL: no focal def., gait not observed. PSYCH: Normal mood, normal affect. SKIN: Warm, dry, normal turgor, no rashes or lesions noted Laboratory Results - last 24 hr 02/27/19 02/27/19 02/27/19 01:32 01:32 01:32 WBC 12.5 H RBC 4.65 Hgb 12.3 Hct 36.9 MCV 79.4 L MCH 26.4 MCHC 33.2 RDW 14.2 Plt Count 297 MPV 7.6 Absolute Neuts (auto) 9.6 H Neutrophils % 77.2 Lymphocytes % 13.4 Monocytes % 8.9 Eosinophils % 0.1 Basophils % 0.4 Nucleated RBC % 0 PT with INR 13.20 H INR 1.12 H PTT (Actin FS) 34.1 VBG pH 7.54 H POC VBG pCO2 27.1 L POC VBG pO2 23.0 L VBG HCO3 22.9 L VBG O2 Sat (Navi) 48.1 L VBG Base Excess 1.5 Sodium Potassium Chloride Carbon Dioxide Anion Gap BUN Creatinine Creat Clearance w eGFR POC Glucometer Random Glucose Hemoglobin A1c % Serum Osmolality Lactic Acid Calcium Phosphorus Magnesium Total Bilirubin AST ALT Alkaline Phosphatase Troponin I B-Natriuretic Peptide Total Protein Albumin Lipase TSH Urine Color Urine Appearance Urine pH Ur Specific [place] Urine Protein Urine Glucose (UA) Urine Ketones Urine Blood Urine Nitrite Urine Bilirubin Urine Urobilinogen Ur Leukocyte Esterase Urine WBC (Auto) Urine RBC (Auto) Urine Casts (Auto) U Epithel Cells (Auto) Urine Bacteria (Auto) 02/27/19 02/27/19 02/27/19 01:32 01:32 01:32 WBC RBC Hgb Hct MCV MCH MCHC RDW Plt Count MPV Absolute Neuts (auto) Neutrophils % Lymphocytes % Monocytes % Eosinophils % Basophils % Nucleated RBC % PT with INR INR PTT (Actin FS) VBG pH POC VBG pCO2 POC VBG pO2 VBG HCO3 VBG O2 Sat (Navi) VBG Base Excess Sodium 119 L* Potassium 3.3 L Chloride 82 L Carbon Dioxide 21 Anion Gap 16 BUN 8 Creatinine 0.9 Creat Clearance w eGFR 61.38 POC Glucometer Random Glucose 200 H Hemoglobin A1c % Serum Osmolality Lactic Acid 5.7 H* Calcium 8.6 Phosphorus 2.2 L Magnesium 1.3 L Total Bilirubin 1.1 H AST 28 ALT 20 Alkaline Phosphatase 113 Troponin I < 0.02 B-Natriuretic Peptide Total Protein 7.5 Albumin 3.7 Lipase TSH Urine Color Urine Appearance Urine pH Ur Specific [place] Urine Protein Urine Glucose (UA) Urine Ketones Urine Blood Urine Nitrite Urine Bilirubin Urine Urobilinogen Ur Leukocyte Esterase Urine WBC (Auto) Urine RBC (Auto) Urine Casts (Auto) U Epithel Cells (Auto) Urine Bacteria (Auto) 02/27/19 02/27/19 02/27/19 02:59 05:30 05:30 WBC RBC Hgb Hct MCV MCH MCHC RDW Plt Count MPV Absolute Neuts (auto) Neutrophils % Lymphocytes % Monocytes % Eosinophils % Basophils % Nucleated RBC % PT with INR 13.40 H INR 1.13 H PTT (Actin FS) VBG pH POC VBG pCO2 POC VBG pO2 VBG HCO3 VBG O2 Sat (Navi) VBG Base Excess Sodium Potassium Chloride Carbon Dioxide Anion Gap BUN Creatinine Creat Clearance w eGFR POC Glucometer Random Glucose Hemoglobin A1c % Serum Osmolality Lactic Acid 5.2 H* Calcium Phosphorus Magnesium Total Bilirubin AST ALT Alkaline Phosphatase Troponin I B-Natriuretic Peptide Total Protein Albumin Lipase TSH Urine Color Yellow Urine Appearance Clear Urine pH 5.0 Ur Specific [place] 1.015 Urine Protein Negative Urine Glucose (UA) 3+ H Urine Ketones 2+ H Urine Blood Trace Urine Nitrite Negative Urine Bilirubin Negative Urine Urobilinogen 0.2 Ur Leukocyte Esterase Negative Urine WBC (Auto) 0 Urine RBC (Auto) 2 Urine Casts (Auto) 1 U Epithel Cells (Auto) 0.3 Urine Bacteria (Auto) 1.9 02/27/19 02/27/19 02/27/19 05:30 05:30 05:30 WBC 13.6 H RBC 4.83 Hgb 12.5 Hct 37.7 MCV 78.1 L MCH 25.8 MCHC 33.1 RDW 14.1 Plt Count 298 MPV 8.1 Absolute Neuts (auto) Neutrophils % Lymphocytes % Monocytes % Eosinophils % Basophils % Nucleated RBC % PT with INR INR PTT (Actin FS) VBG pH POC VBG pCO2 POC VBG pO2 VBG HCO3 VBG O2 Sat (Navi) VBG Base Excess Sodium 120 L Potassium 4.1 Chloride 86 L Carbon Dioxide 20 L Anion Gap 15 BUN 6 L Creatinine 0.9 Creat Clearance w eGFR 61.38 POC Glucometer Random Glucose 148 H Hemoglobin A1c % 5.6 Serum Osmolality 253 L Lactic Acid Calcium 8.6 Phosphorus 2.1 L Magnesium 1.6 L Total Bilirubin AST ALT Alkaline Phosphatase Troponin I 0.03 B-Natriuretic Peptide Total Protein Albumin Lipase 170 TSH 0.28 L Urine Color Urine Appearance Urine pH Ur Specific [place] Urine Protein Urine Glucose (UA) Urine Ketones Urine Blood Urine Nitrite Urine Bilirubin Urine Urobilinogen Ur Leukocyte Esterase Urine WBC (Auto) Urine RBC (Auto) Urine Casts (Auto) U Epithel Cells (Auto) Urine Bacteria (Auto) 02/27/19 02/27/19 08:32 09:55 WBC RBC Hgb Hct MCV MCH MCHC RDW Plt Count MPV Absolute Neuts (auto) Neutrophils % Lymphocytes % Monocytes % Eosinophils % Basophils % Nucleated RBC % PT with INR INR PTT (Actin FS) VBG pH POC VBG pCO2 POC VBG pO2 VBG HCO3 VBG O2 Sat (Navi) VBG Base Excess Sodium 119 L* Potassium 3.9 Chloride 86 L Carbon Dioxide 24 Anion Gap 9 BUN 7 Creatinine 0.7 Creat Clearance w eGFR 82.02 POC Glucometer 187 Random Glucose 206 H Hemoglobin A1c % Serum Osmolality Lactic Acid Calcium 7.9 L Phosphorus 4.1 Magnesium 3.3 H Total Bilirubin 2.0 H AST 33 ALT 19 Alkaline Phosphatase 102 Troponin I 0.02 B-Natriuretic Peptide 779.3 H Total Protein 6.5 Albumin 3.1 L Lipase TSH Urine Color Urine Appearance Urine pH Ur Specific [place] Urine Protein Urine Glucose (UA) Urine Ketones Urine Blood Urine Nitrite Urine Bilirubin Urine Urobilinogen Ur Leukocyte Esterase Urine WBC (Auto) Urine RBC (Auto) Urine Casts (Auto) U Epithel Cells (Auto) Urine Bacteria (Auto) Active Medications Generic Name Dose Route Start Last Admin Trade Name Freq PRN Reason Stop Dose Admin Chlorhexidine Gluconate 1 applic 02/27/19 22:00 Hibiclens For Decolonization - TP HS DULCE Desmopressin Acetate 1 mcg 02/27/19 10:19 Ddavp Injection - IVPB 02/27/19 10:20 ONCE ONE Enoxaparin Sodium 40 mg 02/27/19 10:00 02/27/19 10:01 Lovenox - SQ 40 mg DAILY DULCE Administration Potassium Phosphate 40 mm/ 513.3333 mls @ 85.556 mls/hr 02/27/19 05:49 07:57 Dextrose IVPB 02/27/19 11:48 85.556 mls/hr ONCE ONE Administration Sodium Chloride 1,000 mls @ 100 mls/hr 02/27/19 09:30 02/27/19 09:42 Normal Saline - IV 100 mls/hr ASDIR DULCE Administration Sodium Chloride 500 ml in 500 mls @ 30 mls/hr 02/27/19 10:18 Sodium Chloride 3% IV 02/28/19 02:57 ASDIR ONE Mupirocin 1 applic 02/27/19 10:00 02/27/19 10:01 Bactroban Ointment (For Decolonization) - NS 03/04/19 09:59 1 applic BID DULCE Administration Ondansetron HCl 4 mg 02/27/19 05:28 Zofran Injection IVPUSH Q6H PRN NAUSEA Pantoprazole Sodium 40 mg 02/27/19 10:00 02/27/19 09:43 Protonix Iv IVPUSH 40 mg DAILY DULCE Administration ASSESSMENT/PLAN: 73 yo F with PMHx of HTN, HLD, Dementia was brought in to the ED from home by her son after she was found to have nausea, vomiting and AMS admitted to ICU for further management. Problem List - Problems (1) Hyponatremia Assessment/Plan: 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) * Nephrology consult appreciated. * started on hypertonic saline @ 30cc/hr and titrate as needed to active improvement of Na of ~8 in 24 hours * DDAVP 1mcg Q8H * BMP Q4hr (2) HTN (hypertension) Assessment/Plan: hyponatremia most likely 2/2 HCTZ * Goal BP < 150/100 * Hold HCTZ * cont. Lisinopril and Diltiazem (3) HLD (hyperlipidemia) Assessment/Plan: Will check CK levels r/o rhabdo * Hold statin pending CK levels. (4) Altered mental state Assessment/Plan: most likely 2/2 hyponatremia * Neuro checks Q4H (5) Increased lactic acid level Assessment/Plan: Most likely 2/2 hypovolemia and decreased tissue perfusion * trend LA (6) Dementia Assessment/Plan: Donepezil held for AMS. Visit type - Emergency Visit Emergency Visit: Yes ED Registration Date: 02/27/19 Care time: The patient presented to the Emergency Department on the above date and was hospitalized for further evaluation of their emergent condition. - New Patient This patient is new to me today: Yes Date on this admission: 02/28/19 - Critical Care Critical Care patient: Yes Total Critical Care Time (in minutes): 63 Critical Care Statement: The care of this patient involved high complexity decision making to prevent further life threatening deterioration of the patient 's condition and/or to evaluate & treat vital organ system(s) failure or risk of failure.
--- NOTE | 2019-02-27 12:23 | CONS ---
DATE OF CONSULTATION: 02/27/2019 REQUESTED BY: Hospitalist service. This is a 73-year-old woman with a history of hypertension, hyperlipidemia, and dementia, all fairly recently diagnosed. She had really been reluctant to be in medical care until about a month ago she saw a PMD at [facility] at that time, was started on diltiazem and asked to return 3 weeks later. She followed up this past week, at which time her diltiazem was increased from 120 to 180 and lisinopril/hydrochlorothiazide was added. She also was started on donepezil, which she started on Wednesday. The patient, at baseline, is quite forgetful; she has very poor short-term memory. She is originally from [place]. She is . She lives with her son, his , and their 2 children. Yesterday, she was in her usual state of health, the son and were not home, when their 11-year-old daughter called them and said that she appeared confused and had had nausea. The son came home from work that evening and she had several episodes of vomiting food she had eaten earlier that day. She apparently ate for lunch the same food that her granddaughter had, which the family had eaten the previous evening. Son reports that she was shaking all over and experiencing chills. She was brought to the emergency room for further evaluation. The son also took her temperature at home and reports it was 96. Per the ER note, in the emergency room her temperature was 97.9 and her blood pressure originally was 157/114. She was noted on labs to be hyponatremic with a sodium of 119, potassium of 3.3, lactic acid was 5.7, white count was 12.5. She was started on fluid resuscitation. She had a CAT scan of her abdomen and pelvis. The preliminary reading questions whether she has esophagitis and is read is otherwise unremarkable. Formal reading is pending. She has had no diarrhea. She denies any abdominal pain. She is resting quite comfortably. Her past medical history is notable for a history of hypertension, hyperlipidemia, and dementia. There is no history of any surgery. She has no known drug allergies. Her medications include atorvastatin, diltiazem, donepezil, and lisinopril/hydrochlorothiazide. SOCIAL HISTORY: No history of cigarette, alcohol, or substance use. She lives with her son, his , and 2 granddaughters. She had a cold with some fever about a week ago, which resolved without going to see the doctor. She is originally from [place]. There is no history of any recent travel. REVIEW OF SYSTEMS: She currently is asymptomatic. She has no complaints whatsoever. She has stopped vomiting. PHYSICAL EXAMINATION: Vital Signs: Her temperature is 97.3. Pulse 68. Blood pressure is 172/84. Respiratory rate 19. She weighs 48 kg. HEENT: Normocephalic. Her eyes are anicteric. She has no thrush. Neck: Supple. Lungs: Clear to auscultation. Heart: Regular rate and rhythm. Abdomen: Soft, nontender. Extremities: Without edema. Skin: She has no rash. White count is 13.6, hemoglobin 12.5, platelets 298, INR is 1.1. BUN 6 and creatinine 0.9. Lactic acid this morning was 5.2. Urinalysis has negative leukocytes with 0 white cells. Urine and blood cultures are pending. Chest x-ray is unremarkable. On CAT scan of the abdomen and pelvis, preliminary questions whether she has an early esophagitis. In summary, this is a 73-year-old woman with vomiting, lactic acidosis, hypothermia, hyponatremia, and hypokalemia. Cannot rule out sepsis with the hypothermia and lactic acidosis. Unclear if the vomiting is due to recent medications, perhaps Aricept. Could it be viral? Could it just be food related? But no one else at home is sick with vomiting and they ate the same food. BP medications most likely contributed to her hyponatremia along with the vomiting. I would agree with the cultures that have been sent. She was given Zosyn this morning. Would switch to Rocephin and follow up her cultures, follow up reading of the CAT scan, and correct her hyponatremia. Further recommendations to follow. LORRI MILAN M.D. FREDDIE/[id number]
--- NOTE | 2019-02-27 12:32 | PN ---
Teaching Attending Note Name of Resident: Nolan Weaver ATTENDING PHYSICIAN STATEMENT I saw and evaluated the patient. I reviewed the resident's note and discussed the case with the resident. I agree with the resident's findings and plan as documented. SUBJECTIVE: Patient is confused. She appears comfortable. OBJECTIVE: Vital Signs Period Temp Pulse Resp BP Sys/Norris Pulse Ox Last 24 Hr 97.2 F-97.9 F 64-92 18-158 130-180/67-114 99-100 HEART: S1S2, RRR LUNGS: Clear ABDOMEN: Soft, non-tender, non-distended, normal BS EXTREMITIES: No edema Laboratory Results - last 24 hr 02/27/19 02/27/19 02/27/19 01:32 01:32 01:32 WBC 12.5 H RBC 4.65 Hgb 12.3 Hct 36.9 MCV 79.4 L MCH 26.4 MCHC 33.2 RDW 14.2 Plt Count 297 MPV 7.6 Absolute Neuts (auto) 9.6 H Neutrophils % 77.2 Lymphocytes % 13.4 Monocytes % 8.9 Eosinophils % 0.1 Basophils % 0.4 Nucleated RBC % 0 PT with INR 13.20 H INR 1.12 H PTT (Actin FS) 34.1 VBG pH 7.54 H POC VBG pCO2 27.1 L POC VBG pO2 23.0 L VBG HCO3 22.9 L VBG O2 Sat (Navi) 48.1 L VBG Base Excess 1.5 Sodium Potassium Chloride Carbon Dioxide Anion Gap BUN Creatinine Creat Clearance w eGFR POC Glucometer Random Glucose Hemoglobin A1c % Serum Osmolality Lactic Acid Calcium Phosphorus Magnesium Total Bilirubin AST ALT Alkaline Phosphatase Troponin I B-Natriuretic Peptide Total Protein Albumin Lipase TSH Urine Color Urine Appearance Urine pH Ur Specific [place] Urine Protein Urine Glucose (UA) Urine Ketones Urine Blood Urine Nitrite Urine Bilirubin Urine Urobilinogen Ur Leukocyte Esterase Urine WBC (Auto) Urine RBC (Auto) Urine Casts (Auto) U Epithel Cells (Auto) Urine Bacteria (Auto) 02/27/19 02/27/19 02/27/19 01:32 01:32 01:32 WBC RBC Hgb Hct MCV MCH MCHC RDW Plt Count MPV Absolute Neuts (auto) Neutrophils % Lymphocytes % Monocytes % Eosinophils % Basophils % Nucleated RBC % PT with INR INR PTT (Actin FS) VBG pH POC VBG pCO2 POC VBG pO2 VBG HCO3 VBG O2 Sat (Navi) VBG Base Excess Sodium 119 L* Potassium 3.3 L Chloride 82 L Carbon Dioxide 21 Anion Gap 16 BUN 8 Creatinine 0.9 Creat Clearance w eGFR 61.38 POC Glucometer Random Glucose 200 H Hemoglobin A1c % Serum Osmolality Lactic Acid 5.7 H* Calcium 8.6 Phosphorus 2.2 L Magnesium 1.3 L Total Bilirubin 1.1 H AST 28 ALT 20 Alkaline Phosphatase 113 Troponin I < 0.02 B-Natriuretic Peptide Total Protein 7.5 Albumin 3.7 Lipase TSH Urine Color Urine Appearance Urine pH Ur Specific [place] Urine Protein Urine Glucose (UA) Urine Ketones Urine Blood Urine Nitrite Urine Bilirubin Urine Urobilinogen Ur Leukocyte Esterase Urine WBC (Auto) Urine RBC (Auto) Urine Casts (Auto) U Epithel Cells (Auto) Urine Bacteria (Auto) 02/27/19 02/27/19 02/27/19 02:59 05:30 05:30 WBC RBC Hgb Hct MCV MCH MCHC RDW Plt Count MPV Absolute Neuts (auto) Neutrophils % Lymphocytes % Monocytes % Eosinophils % Basophils % Nucleated RBC % PT with INR 13.40 H INR 1.13 H PTT (Actin FS) VBG pH POC VBG pCO2 POC VBG pO2 VBG HCO3 VBG O2 Sat (Navi) VBG Base Excess Sodium Potassium Chloride Carbon Dioxide Anion Gap BUN Creatinine Creat Clearance w eGFR POC Glucometer Random Glucose Hemoglobin A1c % Serum Osmolality Lactic Acid 5.2 H* Calcium Phosphorus Magnesium Total Bilirubin AST ALT Alkaline Phosphatase Troponin I B-Natriuretic Peptide Total Protein Albumin Lipase TSH Urine Color Yellow Urine Appearance Clear Urine pH 5.0 Ur Specific [place] 1.015 Urine Protein Negative Urine Glucose (UA) 3+ H Urine Ketones 2+ H Urine Blood Trace Urine Nitrite Negative Urine Bilirubin Negative Urine Urobilinogen 0.2 Ur Leukocyte Esterase Negative Urine WBC (Auto) 0 Urine RBC (Auto) 2 Urine Casts (Auto) 1 U Epithel Cells (Auto) 0.3 Urine Bacteria (Auto) 1.9 02/27/19 02/27/19 02/27/19 05:30 05:30 05:30 WBC 13.6 H RBC 4.83 Hgb 12.5 Hct 37.7 MCV 78.1 L MCH 25.8 MCHC 33.1 RDW 14.1 Plt Count 298 MPV 8.1 Absolute Neuts (auto) Neutrophils % Lymphocytes % Monocytes % Eosinophils % Basophils % Nucleated RBC % PT with INR INR PTT (Actin FS) VBG pH POC VBG pCO2 POC VBG pO2 VBG HCO3 VBG O2 Sat (Navi) VBG Base Excess Sodium 120 L Potassium 4.1 Chloride 86 L Carbon Dioxide 20 L Anion Gap 15 BUN 6 L Creatinine 0.9 Creat Clearance w eGFR 61.38 POC Glucometer Random Glucose 148 H Hemoglobin A1c % 5.6 Serum Osmolality 253 L Lactic Acid Calcium 8.6 Phosphorus 2.1 L Magnesium 1.6 L Total Bilirubin AST ALT Alkaline Phosphatase Troponin I 0.03 B-Natriuretic Peptide Total Protein Albumin Lipase 170 TSH 0.28 L Urine Color Urine Appearance Urine pH Ur Specific [place] Urine Protein Urine Glucose (UA) Urine Ketones Urine Blood Urine Nitrite Urine Bilirubin Urine Urobilinogen Ur Leukocyte Esterase Urine WBC (Auto) Urine RBC (Auto) Urine Casts (Auto) U Epithel Cells (Auto) Urine Bacteria (Auto) 02/27/19 02/27/19 02/27/19 08:32 09:55 09:55 WBC RBC Hgb Hct MCV MCH MCHC RDW Plt Count MPV Absolute Neuts (auto) Neutrophils % Lymphocytes % Monocytes % Eosinophils % Basophils % Nucleated RBC % PT with INR INR PTT (Actin FS) VBG pH POC VBG pCO2 POC VBG pO2 VBG HCO3 VBG O2 Sat (Navi) VBG Base Excess Sodium Potassium Chloride Carbon Dioxide Anion Gap BUN Creatinine Creat Clearance w eGFR POC Glucometer 187 Random Glucose Hemoglobin A1c % Serum Osmolality Lactic Acid 1.8 Cancelled Calcium Phosphorus Magnesium Total Bilirubin AST ALT Alkaline Phosphatase Troponin I B-Natriuretic Peptide Total Protein Albumin Lipase TSH Urine Color Urine Appearance Urine pH Ur Specific [place] Urine Protein Urine Glucose (UA) Urine Ketones Urine Blood Urine Nitrite Urine Bilirubin Urine Urobilinogen Ur Leukocyte Esterase Urine WBC (Auto) Urine RBC (Auto) Urine Casts (Auto) U Epithel Cells (Auto) Urine Bacteria (Auto) 02/27/19 02/27/19 09:55 11:14 WBC RBC Hgb Hct MCV MCH MCHC RDW Plt Count MPV Absolute Neuts (auto) Neutrophils % Lymphocytes % Monocytes % Eosinophils % Basophils % Nucleated RBC % PT with INR INR PTT (Actin FS) VBG pH POC VBG pCO2 POC VBG pO2 VBG HCO3 VBG O2 Sat (Navi) VBG Base Excess Sodium 119 L* Potassium 3.9 Chloride 86 L Carbon Dioxide 24 Anion Gap 9 BUN 7 Creatinine 0.7 Creat Clearance w eGFR 82.02 POC Glucometer 214 Random Glucose 206 H Hemoglobin A1c % Serum Osmolality Lactic Acid Calcium 7.9 L Phosphorus 4.1 Magnesium 3.3 H Total Bilirubin 2.0 H AST 33 ALT 19 Alkaline Phosphatase 102 Troponin I 0.02 B-Natriuretic Peptide 779.3 H Total Protein 6.5 Albumin 3.1 L Lipase TSH Urine Color Urine Appearance Urine pH Ur Specific [place] Urine Protein Urine Glucose (UA) Urine Ketones Urine Blood Urine Nitrite Urine Bilirubin Urine Urobilinogen Ur Leukocyte Esterase Urine WBC (Auto) Urine RBC (Auto) Urine Casts (Auto) U Epithel Cells (Auto) Urine Bacteria (Auto) Current Medications Generic Name Dose Route Start Last Admin Trade Name Freq PRN Reason Stop Dose Admin Chlorhexidine Gluconate 1 applic 02/27/19 22:00 Hibiclens For Decolonization - TP HS DULCE Enoxaparin Sodium 40 mg 02/27/19 10:00 02/27/19 10:01 Lovenox - SQ 40 mg DAILY DULCE Administration Sodium Chloride 1,000 mls @ 100 mls/hr 02/27/19 09:30 02/27/19 09:42 Normal Saline - IV 100 mls/hr ASDIR DULCE Administration Sodium Chloride 500 ml in 500 mls @ 30 mls/hr 02/27/19 10:18 Sodium Chloride 3% IV 02/28/19 02:57 ASDIR ONE Mupirocin 1 applic 02/27/19 10:00 02/27/19 10:01 Bactroban Ointment (For Decolonization) - NS 03/04/19 09:59 1 applic BID DULCE Administration Ondansetron HCl 4 mg 02/27/19 05:28 Zofran Injection IVPUSH Q6H PRN NAUSEA Pantoprazole Sodium 40 mg 02/27/19 10:00 02/27/19 09:43 Protonix Iv IVPUSH 40 mg DAILY DULCE Administration ASSESSMENT AND PLAN: This is a 73 year old woman with a history of HTN, hyperlipidemia, dementia who presented to the ED with nausea, vomiting, and confusion. 1. Hyponatremia - Nephrology input appreciated - Normal saline changed to 3% saline - DDAVP started 2. Acute metabolic encephalopathy - Likely secondary to hyponatremia - On ceftriaxone empirically - Follow up blood, urine cultures 3. Lactic acidosis - Likely secondary to hypovolemia - Improved with IV fluid 4. HTN - Continue lisinopril, diltiazem - HCTZ discontinued secondary to hyponatremia 5. Hyperlipidemia - On Lipitor at home - held while awaiting CK 6. Dementia - On Aricept at home
--- NOTE | 2019-02-27 12:46 | PN ---
Teaching Attending Note Name of Resident: Surya Kirby ATTENDING PHYSICIAN STATEMENT I saw and evaluated the patient. I reviewed the resident's note and discussed the case with the resident. I agree with the resident's findings and plan as documented. SUBJECTIVE: Pt seen and examined in the ICU. Evaluated by renal, to start hypertonic saline. Remains confused per family at bedside. OBJECTIVE: Vital Signs Period Temp Pulse Resp BP Sys/Norris Pulse Ox Last 24 Hr 97.2 F-97.9 F 64-92 18-158 130-180/67-114 99-100 Intake & Output 02/24/19 02/25/19 02/26/19 02/27/19 23:59 23:59 23:59 23:59 Intake Total 150 Output Total 1350 Balance -1200 Weight 48.398 kg Gen: NAD but confused Heart: RRR Lung: decreased breath sounds at the bases Abd: soft, nontender Ext: no edema CBC, BMP 02/27/19 05:30 02/27/19 09:55 Active Medications Chlorhexidine Gluconate (Hibiclens For Decolonization -) 1 applic TP HS [facility] Enoxaparin Sodium (Lovenox -) 40 mg SQ DAILY [facility] Last Admin: 02/27/19 10:01 Dose: 40 mg Sodium Chloride (Normal Saline -) 1,000 mls @ 100 mls/hr IV ASDIR DULCE Last Admin: 02/27/19 09:42 Dose: 100 mls/hr Sodium Chloride (Sodium Chloride 3%) 500 ml in 500 mls @ 30 mls/hr IV ASDIR ONE Stop: 02/28/19 02:57 Mupirocin (Bactroban Ointment (For Decolonization) -) 1 applic NS BID [facility] Stop: 03/04/19 09:59 Last Admin: 02/27/19 10:01 Dose: 1 applic Ondansetron HCl (Zofran Injection) 4 mg IVPUSH Q6H PRN PRN Reason: NAUSEA Pantoprazole Sodium (Protonix Iv) 40 mg IVPUSH DAILY [facility] Last Admin: 02/27/19 09:43 Dose: 40 mg ASSESSMENT AND PLAN: Severe Hyponatremia Altered Mental Status Lactic Acidosis HTN Hyperlipidemia Dementia - hypertonic saline per renal - dDAVP - monitor sodium level closely - do not correct sodium >0.5mEq/hr - DVT prophylaxis - continue ICU monitoring critical care time spent in reviewing chart, evaluating patient and formulating plan 35 min
[2019-02-27 17:04] LABS: ANION GAP 9 MMOL/L (8-16); BLOOD UREA NITROGEN 5 mg/dL (7-18); CALCIUM 7.9 mg/dL (8.5-10.1); CHLORIDE 84 mmol/L (98-107); CO2 24 mmol/L (21-32); CREATININE 0.6 mg/dL (0.55-1.3); GLUCOSE,RANDOM 120 mg/dL (74-106); POTASSIUM 4.3 mmol/L (3.5-5.1)
[2019-02-27 17:13] LABS: SODIUM 117 mmol/L (136-145)
[2019-02-27 18:25] LABS: BILIRUBIN,DIRECT 0.4 mg/dL (0.0-0.2)
[2019-02-27 21:16] LABS: ANION GAP 10 MMOL/L (8-16); BLOOD UREA NITROGEN 6 mg/dL (7-18); CALCIUM 7.8 mg/dL (8.5-10.1); CHLORIDE 88 mmol/L (98-107); CO2 23 mmol/L (21-32); CREATININE 0.6 mg/dL (0.55-1.3); GLUCOSE,RANDOM 88 mg/dL (74-106); POTASSIUM 3.8 mmol/L (3.5-5.1); SODIUM 121 mmol/L (136-145)
[2019-02-27] MEDS ORDERED: HALOPERIDOL LACTATE 5 MG/ML IM ONE ×3 (22:10→22:37)
--- NOTE | 2019-02-27 22:10 | PN ---
Progress Note (short form) - Note Progress Note: Patient is restless, trying to get out of bed. Restraint applied- [place] and bilateral wrist restraint. After multiple attempts of counseling the patient and using restraints, she has been constantly trying to climb out of bed. Pulled out 4 IV lines from 7 pm- 10:33 pm on restraints. Halodol 2.5 mg IM given. Patient is still restless. Currently does not have an IV site. Will give another dose of 2.5 mg of IM Halodol and restart her on IV hypertonic saline. Repeat BMP noted, sodium of [address] Yates. Plan is to continue Hypertonic saline at 45 cc/hr. Repeat BMP is at 12:30 pm. If Sodium is 125 mEq on repeat BMP, will stop Hypertonic saline and repeat BMP at 6 am.
[2019-02-27] MEDS: CHLORHEXIDINE GLUCONATE 4% CLEANSER FOR DECOLONIZATION TP SCH (22:32)
[2019-02-27 23:51] LABS: ANION GAP 9 MMOL/L (8-16); BLOOD UREA NITROGEN 7 mg/dL (7-18); CALCIUM 8.2 mg/dL (8.5-10.1); CHLORIDE 90 mmol/L (98-107); CO2 23 mmol/L (21-32); CREATININE 0.8 mg/dL (0.55-1.3); GLUCOSE,RANDOM 100 mg/dL (74-106); SODIUM 122 mmol/L (136-145)
[2019-02-28] MEDS ORDERED: CEFTRIAXONE 1 GM in DEXTROSE 5%-WATER - 50 ML IVPB SCH (01:21)
[2019-02-28 03:45] LABS: ANION GAP 8 MMOL/L (8-16); BLOOD UREA NITROGEN 7 mg/dL (7-18); CALCIUM 8.1 mg/dL (8.5-10.1); CHLORIDE 96 mmol/L (98-107); CO2 25 mmol/L (21-32); CREATININE 0.8 mg/dL (0.55-1.3); GLUCOSE,RANDOM 104 mg/dL (74-106); POTASSIUM 3.9 mmol/L (3.5-5.1); SODIUM 128 mmol/L (136-145)
[2019-02-28 06:05] LABS: BASO % 0.4 % (0-2.0); HEMATOCRIT 36.6 % (32.4-45.2); LYMPH % 7.6 % (8-40); MCH 25.6 pg (25.7-33.7); MCHC 32.7 g/dl (32.0-36.0); MEAN CELL VOLUME 78.3 fl (80-96); MEAN PLT VOLUME 7.9 fl (7.5-11.1); MONO % 9.3 % (3.8-10.2); NEUT % 82.7 % (42.8-82.8); PLATELET COUNT 281 K/MM3 (134-434); RBC 4.67 M/mm3 (3.60-5.2); RDW 13.9 % (11.6-15.6); WHITE BLOOD COUNT 11.1 K/mm3 (4.0-10.0)
[2019-02-28 06:21] LABS: INR 1.13 (0.83-1.09); PROTHROMBIN TIME (PATIENT) 13.3 SEC (9.7-13.0)
[2019-02-28 06:41] LABS: ALBUMIN 3.2 g/dl (3.4-5.0); ALK PHOS 93 U/L (45-117); ANION GAP 8 MMOL/L (8-16); BILIRUBIN,TOTAL 2.2 mg/dL (0.2-1); BLOOD UREA NITROGEN 7 mg/dL (7-18); CALCIUM 8.2 mg/dL (8.5-10.1); CHLORIDE 99 mmol/L (98-107); CO2 24 mmol/L (21-32); CREATININE 0.7 mg/dL (0.55-1.3); GLUCOSE,RANDOM 100 mg/dL (74-106); MAGNESIUM 2.5 mg/dL (1.8-2.4); PHOSPHOROUS 2.9 mg/dL (2.5-4.9); SGOT/AST 84 U/L (15-37); SGPT/ALT 29 U/L (13-61); SODIUM 130 mmol/L (136-145); TOT PROT 6.4 g/dl (6.4-8.2)
[2019-02-28] MEDS ORDERED: DEXTROSE 5%-WATER - 1,000 ML IV SCH ×2 (07:00→08:32)
--- NOTE | 2019-02-28 07:59 | PN ---
Teaching Attending Note Name of Resident: Adelaida Trujillo ATTENDING PHYSICIAN STATEMENT I saw and evaluated the patient. I reviewed the resident's note and discussed the case with the resident. I agree with the resident's findings and plan as documented. SUBJECTIVE: Patient is feeling better, patient is less confused. In ICU. OBJECTIVE: Vital Signs Temperature 98.5 F 02/28/19 06:00 Pulse Rate 67 02/28/19 06:00 Respiratory Rate 18 02/28/19 06:00 Blood Pressure 114/51 L 02/28/19 06:00 O2 Sat by Pulse Oximetry (%) 99 02/27/19 16:38 GENERAL: The patient is awake, alert, and orientedx2 , in no acute distress. HEAD: Normal with no signs of trauma. EYES: PERRL, extraocular movements intact, sclera anicteric, conjunctiva clear. ENT: Ears normal, oropharynx clear without exudates, moist mucous membranes. NECK: Trachea midline, full range of motion, supple. LUNGS: decreased Breath sounds BL , no wheezes, no crackles, no accessory muscle use. HEART: Regular rate and rhythm, S1, S2 without murmur, rub or gallop. ABDOMEN: Soft, nontender, nondistended, normoactive bowel sounds, no guarding, no rebound, no hepatosplenomegaly, no masses appreciated. EXTREMITIES: 2+ pulses, warm, well-perfused, no edema. NEUROLOGICAL: Cranial nerves II through XII grossly intact. Normal speech, gait not observed. SKIN: Warm, dry, normal turgor, no rashes or lesions noted CBCD WBC 11.1 K/mm3 (4.0-10.0) H 02/28/19 05:30 RBC 4.67 M/mm3 (3.60-5.2) 02/28/19 05:30 Hgb 12.0 GM/dL (10.7-15.3) 02/28/19 05:30 Hct 36.6 % (32.4-45.2) 02/28/19 05:30 MCV 78.3 fl (80-96) L 02/28/19 05:30 MCHC 32.7 g/dl (32.0-36.0) 02/28/19 05:30 RDW 13.9 % (11.6-15.6) 02/28/19 05:30 Plt Count 281 K/MM3 (134-434) 02/28/19 05:30 MPV 7.9 fl (7.5-11.1) 02/28/19 05:30 CMP Sodium 130 mmol/L (136-145) L 02/28/19 05:30 Potassium 4.0 mmol/L (3.5-5.1) 02/28/19 05:30 Chloride 99 mmol/L (98-107) 02/28/19 05:30 Carbon Dioxide 24 mmol/L (21-32) 02/28/19 05:30 Anion Gap 8 MMOL/L (8-16) 02/28/19 05:30 BUN 7 mg/dL (7-18) 02/28/19 05:30 Creatinine 0.7 mg/dL (0.55-1.3) 02/28/19 05:30 Creat Clearance w eGFR 82.02 (>60) 02/28/19 05:30 Random Glucose 100 mg/dL (74-106) 02/28/19 05:30 Calcium 8.2 mg/dL (8.5-10.1) L 02/28/19 05:30 Total Bilirubin 2.2 mg/dL (0.2-1) H 02/28/19 05:30 AST 84 U/L (15-37) H 02/28/19 05:30 ALT 29 U/L (13-61) 02/28/19 05:30 Alkaline Phosphatase 93 U/L (45-117) 02/28/19 05:30 Total Protein 6.4 g/dl (6.4-8.2) 02/28/19 05:30 Albumin 3.2 g/dl (3.4-5.0) L 02/28/19 05:30 CARDIAC ENZYMES Creatine Kinase 1506 U/L (26-192) H 02/27/19 19:40 Troponin I 0.03 ng/ml (0.00-0.05) 02/27/19 12:14 Current Medications Generic Name Dose Route Start Last Admin Trade Name Freq PRN Reason Stop Dose Admin Chlorhexidine Gluconate 1 applic 02/27/19 22:00 02/27/19 22:32 Hibiclens For Decolonization - TP 1 applic HS DULCE Administration Diltiazem HCl 180 mg 02/27/19 16:45 02/27/19 17:39 Cardizem Cd - PO 180 mg DAILY DULCE Administration Enoxaparin Sodium 40 mg 02/27/19 10:00 02/27/19 10:01 Lovenox - SQ 40 mg DAILY DULCE Administration Ceftriaxone Sodium 1 gm/ 50 mls @ 100 mls/hr 02/28/19 01:21 02/28/19 02:22 Dextrose IVPB 100 mls/hr DAILY DULCE Administration Protocol Dextrose 1,000 mls @ 42 mls/hr 02/28/19 07:00 D5w - IV .[id number] DULCE Mupirocin 1 applic 02/27/19 10:00 02/27/19 22:35 Bactroban Ointment (For Decolonization) - NS 03/04/19 09:59 1 applic BID DULCE Administration Ondansetron HCl 4 mg 02/27/19 05:28 Zofran Injection IVPUSH Q6H PRN NAUSEA Pantoprazole Sodium 40 mg 02/27/19 10:00 02/27/19 09:43 Protonix Iv IVPUSH 40 mg DAILY DULCE Administration Home Medications Medication Instructions Recorded Atorvastatin Ca [Lipitor] 10 mg PO HS 02/27/19 Diltiazem HCl [Diltiazem 24Hr Cd] 180 mg PO DAILY 02/27/19 Donepezil HCl [Aricept -] 5 mg PO DAILY 02/27/19 Lisinopril/Hydrochlorothiazide 1 each PO DAILY 02/27/19 [Lisinopril-Hctz 10-12.5 mg Tab] Laboratory Tests 02/27/19 02/27/19 02/27/19 05:30 09:55 12:14 Sodium 119 L* Serum Osmolality 253 L Creatine Kinase 780 H 967 H Ur Random Sodium 02/27/19 02/27/19 02/27/19 13:00 15:45 19:40 Sodium 117 L* 121 L Serum Osmolality Creatine Kinase 1506 H Ur Random Sodium 112 02/27/19 02/28/19 02/28/19 23:10 03:06 05:30 Sodium 122 L 128 L 130 L Serum Osmolality Creatine Kinase Ur Random Sodium ASSESSMENT AND PLAN: This is a 73 year old woman with a history of HTN, hyperlipidemia, dementia who presented to the ED with nausea, vomiting, and confusion. # Acute Hyponatremia improved s/p 3% NS, DDAVP, and now on D5w as per nephro continue. presented with 119--->130 today, nephro. dr Yates on the case. # Acute metabolic encephalopathy: improving due to hyponatremia lactic acidosis with possible sepsis # Lactic acidosis: improving on IVF, on IV antibiotic Rocephin # Elevated CPK: trend, will hold Lipitor , repeat CPk level # HTN: Continue lisinopril, diltiazem, Discontinued HCTZ due to having hyponatremia # Hyperlipidemia hold home Lipitor for now due to elevated CK # Dementia on home Aricept continue DVT/GI px: Lovenox/PPI
--- NOTE | 2019-02-28 09:19 | PN ---
Physical Exam: SUBJECTIVE: Patient seen and examined this AM. She states she is feeling well. Unable to say why she is in the hospital but states that she is feeling better today without any nausea/vomiting when directly asked. OBJECTIVE: Vital Signs Period Temp Pulse Resp BP Sys/Norris Pulse Ox Last 24 Hr 97.9 F-98.9 F 63-89 15-24 114-175/51-96 99-100 GEN: Awake and alert, oriented to self and type of building but not specific hospital or year HEENT: PERRL, Moist mucus membranes NECK: supple, nontender, nonenlarged HEART: RRR, no murmurs noted LUNGS: CTA b/l ABDOMEN: Soft, nontender EXTREMITIES: no peripheral edema NEURO: CN grossly in tact, gross strength and sensation in tact Laboratory Results - last 24 hr 02/27/19 02/27/19 02/27/19 05:30 05:30 09:55 WBC RBC Hgb Hct MCV MCH MCHC RDW Plt Count MPV Absolute Neuts (auto) Neutrophils % Lymphocytes % Monocytes % Eosinophils % Basophils % Nucleated RBC % PT with INR INR Sodium Potassium Chloride Carbon Dioxide Anion Gap BUN Creatinine Creat Clearance w eGFR POC Glucometer Random Glucose Hemoglobin A1c % 5.6 Serum Osmolality 253 L Lactic Acid 1.8 Calcium Phosphorus Magnesium Total Bilirubin Direct Bilirubin AST ALT Alkaline Phosphatase Creatine Kinase Creatine Kinase Index CK-MB (CK-2) Troponin I B-Natriuretic Peptide Total Protein Albumin TSH Urine Osmolality Ur Random Sodium Ur Random Potassium Ur Random Chloride Urine Creatinine Influenza A (Rapid) Influenza B (Rapid) 02/27/19 02/27/19 02/27/19 09:55 09:55 11:14 WBC RBC Hgb Hct MCV MCH MCHC RDW Plt Count MPV Absolute Neuts (auto) Neutrophils % Lymphocytes % Monocytes % Eosinophils % Basophils % Nucleated RBC % PT with INR INR Sodium 119 L* Potassium 3.9 Chloride 86 L Carbon Dioxide 24 Anion Gap 9 BUN 7 Creatinine 0.7 Creat Clearance w eGFR 82.02 POC Glucometer 214 Random Glucose 206 H Hemoglobin A1c % Serum Osmolality Lactic Acid Cancelled Calcium 7.9 L Phosphorus 4.1 Magnesium 3.3 H Total Bilirubin 2.0 H Direct Bilirubin AST 33 ALT 19 Alkaline Phosphatase 102 Creatine Kinase 780 H Creatine Kinase Index 0.9 CK-MB (CK-2) 7.3 H Troponin I 0.02 B-Natriuretic Peptide 779.3 H Total Protein 6.5 Albumin 3.1 L TSH 0.28 L Urine Osmolality Ur Random Sodium Ur Random Potassium Ur Random Chloride Urine Creatinine Influenza A (Rapid) Influenza B (Rapid) 02/27/19 02/27/19 02/27/19 11:30 11:48 12:14 WBC RBC Hgb Hct MCV MCH MCHC RDW Plt Count MPV Absolute Neuts (auto) Neutrophils % Lymphocytes % Monocytes % Eosinophils % Basophils % Nucleated RBC % PT with INR INR Sodium Potassium Chloride Carbon Dioxide Anion Gap BUN Creatinine Creat Clearance w eGFR POC Glucometer Random Glucose Hemoglobin A1c % Serum Osmolality Lactic Acid Calcium Phosphorus Magnesium Total Bilirubin Direct Bilirubin AST ALT Alkaline Phosphatase Creatine Kinase 967 H Creatine Kinase Index 1.0 CK-MB (CK-2) 10.6 H Troponin I 0.03 B-Natriuretic Peptide Total Protein Albumin TSH Urine Osmolality Ur Random Sodium Ur Random Potassium Ur Random Chloride Urine Creatinine 27.2 Influenza A (Rapid) Negative Influenza B (Rapid) Negative 02/27/19 02/27/19 02/27/19 13:00 13:00 15:45 WBC RBC Hgb Hct MCV MCH MCHC RDW Plt Count MPV Absolute Neuts (auto) Neutrophils % Lymphocytes % Monocytes % Eosinophils % Basophils % Nucleated RBC % PT with INR INR Sodium 117 L* Potassium 4.3 Chloride 84 L Carbon Dioxide 24 Anion Gap 9 BUN 5 L Creatinine 0.6 Creat Clearance w eGFR 97.99 POC Glucometer Random Glucose 120 H Hemoglobin A1c % Serum Osmolality Lactic Acid Calcium 7.9 L Phosphorus Magnesium Total Bilirubin Direct Bilirubin 0.4 H AST ALT Alkaline Phosphatase Creatine Kinase Creatine Kinase Index CK-MB (CK-2) Troponin I B-Natriuretic Peptide Total Protein Albumin TSH Urine Osmolality 490 Ur Random Sodium 112 Ur Random Potassium 41.1 Ur Random Chloride 43 L Urine Creatinine Influenza A (Rapid) Influenza B (Rapid) 02/27/19 02/27/19 02/27/19 17:00 17:36 19:40 WBC RBC Hgb Hct MCV MCH MCHC RDW Plt Count MPV Absolute Neuts (auto) Neutrophils % Lymphocytes % Monocytes % Eosinophils % Basophils % Nucleated RBC % PT with INR INR Sodium 121 L Potassium 3.8 Chloride 88 L Carbon Dioxide 23 Anion Gap 10 BUN 6 L Creatinine 0.6 Creat Clearance w eGFR 97.99 POC Glucometer 115 Random Glucose 88 Hemoglobin A1c % Serum Osmolality Lactic Acid Calcium 7.8 L Phosphorus Magnesium Total Bilirubin Direct Bilirubin Cancelled AST ALT Alkaline Phosphatase Creatine Kinase 1506 H Creatine Kinase Index 0.9 CK-MB (CK-2) 14.9 H Troponin I B-Natriuretic Peptide Total Protein Albumin TSH Urine Osmolality Ur Random Sodium Ur Random Potassium Ur Random Chloride Urine Creatinine Influenza A (Rapid) Influenza B (Rapid) 02/27/19 02/28/19 02/28/19 23:10 03:06 05:30 WBC RBC Hgb Hct MCV MCH MCHC RDW Plt Count MPV Absolute Neuts (auto) Neutrophils % Lymphocytes % Monocytes % Eosinophils % Basophils % Nucleated RBC % PT with INR INR Sodium 122 L 128 L 130 L Potassium 4.0 3.9 4.0 Chloride 90 L 96 L 99 Carbon Dioxide 23 25 24 Anion Gap 9 8 8 BUN 7 7 7 Creatinine 0.8 0.8 0.7 Creat Clearance w eGFR 70.31 70.31 82.02 POC Glucometer Random Glucose 100 104 100 Hemoglobin A1c % Serum Osmolality Lactic Acid Calcium 8.2 L 8.1 L 8.2 L Phosphorus 2.9 Magnesium 2.5 H Total Bilirubin 2.2 H Direct Bilirubin AST 84 H ALT 29 Alkaline Phosphatase 93 Creatine Kinase Creatine Kinase Index CK-MB (CK-2) Troponin I B-Natriuretic Peptide Total Protein 6.4 Albumin 3.2 L TSH Urine Osmolality Ur Random Sodium Ur Random Potassium Ur Random Chloride Urine Creatinine Influenza A (Rapid) Influenza B (Rapid) 02/28/19 02/28/19 02/28/19 05:30 05:30 07:41 WBC 11.1 H RBC 4.67 Hgb 12.0 Hct 36.6 MCV 78.3 L MCH 25.6 L MCHC 32.7 RDW 13.9 Plt Count 281 MPV 7.9 Absolute Neuts (auto) 9.2 H Neutrophils % 82.7 Lymphocytes % 7.6 L D Monocytes % 9.3 Eosinophils % 0.0 D Basophils % 0.4 Nucleated RBC % 0 PT with INR 13.30 H INR 1.13 H Sodium Potassium Chloride Carbon Dioxide Anion Gap BUN Creatinine Creat Clearance w eGFR POC Glucometer 104 Random Glucose Hemoglobin A1c % Serum Osmolality Lactic Acid Calcium Phosphorus Magnesium Total Bilirubin Direct Bilirubin AST ALT Alkaline Phosphatase Creatine Kinase Creatine Kinase Index CK-MB (CK-2) Troponin I B-Natriuretic Peptide Total Protein Albumin TSH Urine Osmolality Ur Random Sodium Ur Random Potassium Ur Random Chloride Urine Creatinine Influenza A (Rapid) Influenza B (Rapid) Active Medications Generic Name Dose Route Start Last Admin Trade Name Freq PRN Reason Stop Dose Admin Chlorhexidine Gluconate 1 applic 02/27/19 22:00 02/27/19 22:32 Hibiclens For Decolonization - TP 1 applic HS DULCE Administration Diltiazem HCl 180 mg 02/27/19 16:45 02/27/19 17:39 Cardizem Cd - PO 180 mg DAILY DULCE Administration Enoxaparin Sodium 40 mg 02/27/19 10:00 02/27/19 10:01 Lovenox - SQ 40 mg DAILY DULCE Administration Ceftriaxone Sodium 1 gm/ 50 mls @ 100 mls/hr 02/28/19 01:21 02/28/19 02:22 Dextrose IVPB 100 mls/hr DAILY DULCE Administration Protocol Dextrose 1,000 mls @ 42 mls/hr 02/28/19 08:32 02/28/19 08:34 D5w - IV 42 mls/hr Q23H DULCE Administration Mupirocin 1 applic 02/27/19 10:00 02/27/19 22:35 Bactroban Ointment (For Decolonization) - NS 03/04/19 09:59 1 applic BID DULCE Administration Ondansetron HCl 4 mg 02/27/19 05:28 Zofran Injection IVPUSH Q6H PRN NAUSEA Pantoprazole Sodium 40 mg 02/27/19 10:00 02/27/19 09:43 Protonix Iv IVPUSH 40 mg DAILY DULCE Administration ASSESSMENT/PLAN: 73 year old female with past medical history of Hypertension, HLD, Dementia Admitted to the ICU for severe symptomatic Hyponatremia NEURO: -Symptomatic Hyponatremia Renal Consult appreciated 3% Saline held for now BMP Q4 hours until Na stable DDAVP 1 dose yesterday, held last night due to slow correction, Na increase overnight noted Repeat BMP pending, Na noted 134 most recently, will hold all fluids in hopes Na level will stabilize If Na drops, pt may require oral salt tablets -Dimentia Monitor for return to baseline CARDIO: -CV stable -HTN Continue home Diltiazem Hold lisinopril/HCTZ for now GI: -Nausea vomiting from undetermined source Hold off Zofran as n/v improving and QTc prolonged, monitor QTc if requires anti-emetic ENDOCRINE: -Monitor for endocrine causes of Hyponatremia -TSH low Free T4 pending Pt with no clinical signs of myxedema coma RENAL: -HypoNatremia as above FEN: -none -monitor and replete -NPO, can advance if Na stable, fluid restriction to 1L per day as per nephrology PROPHYLAXIS: -Lovenox 40 mg SQ Daily DISPOSITION: Continue to monitor in the ICU, can transfer to med/surg if Na stable Visit type - Emergency Visit Emergency Visit: Yes ED Registration Date: 02/27/19 Care time: The patient presented to the Emergency Department on the above date and was hospitalized for further evaluation of their emergent condition. - New Patient This patient is new to me today: No - Critical Care Critical Care patient: Yes Total Critical Care Time (in minutes): 35 Critical Care Statement: The care of this patient involved high complexity decision making to prevent further life threatening deterioration of the patient 's condition and/or to evaluate & treat vital organ system(s) failure or risk of failure.
[2019-02-28] MEDS ORDERED: cefTRIAXone SODIUM 1 GM VIAL ONE (09:37)
[2019-02-28] MEDS ORDERED: DEXTROSE 5%-WATER - 50 ML IVPB ONE (09:37)
[2019-02-28] MEDS: ENOXAPARIN NA (PORCINE) 40 MG/0.4 ML DISP.SYRIN SQ SCH (09:45)
[2019-02-28] MEDS: PANTOPRAZOLE SODIUM 40 MG VIAL IVPUSH SCH (09:45)
[2019-02-28] MEDS: MUPIROCIN 2% TOPICAL OINTMENT FOR DECOLONIZATION NS SCH ×2 (09:46→22:02)
[2019-02-28] MEDS ORDERED: PT OWN MED DRAWER 7, Y5N ONE (09:51)
--- NOTE | 2019-02-28 10:30 | PN ---
Progress Note (short form) - Note Progress Note: Renal follow up for Hyponatremia Pt seen and examined in the ICU awake and alert oriented x 2 no sob, cp, abd pain, N/V/D was on hypertonic saline overnight Vital Signs Temperature 98.5 F 02/28/19 06:00 Pulse Rate 57 L 02/28/19 10:00 Respiratory Rate 16 02/28/19 10:00 Blood Pressure 137/53 L 02/28/19 10:00 O2 Sat by Pulse Oximetry (%) 99 02/28/19 08:09 Intake & Output 02/25/19 02/26/19 02/27/19 02/28/19 23:59 23:59 23:59 23:59 Intake Total 1375 Output Total 2200 1000 Balance -825 -1000 Weight 48.398 kg 46.437 kg NAD awake and alert but confused neck supple, no JVD MMM RRR, no M/R CTA soft NT/ND no LE edema, clubbing or cyanosis CBC, BMP 02/28/19 05:30 Laboratory Tests 02/27/19 02/28/19 02/28/19 23:10 03:06 05:30 Sodium 122 L 128 L 130 L Current Medications Chlorhexidine Gluconate (Hibiclens For Decolonization -) 1 applic TP HS DULCE Last Admin: 02/27/19 22:32 Dose: 1 applic Diltiazem HCl (Cardizem Cd -) 180 mg PO DAILY DULCE Last Admin: 02/28/19 09:45 Dose: 180 mg Enoxaparin Sodium (Lovenox -) 40 mg SQ DAILY DULCE Last Admin: 02/28/19 09:45 Dose: 40 mg Ceftriaxone Sodium 1 gm/ (Dextrose) 50 mls @ 100 mls/hr IVPB DAILY DULCE; Protocol Last Admin: 02/28/19 02:22 Dose: 100 mls/hr Dextrose (D5w -) 1,000 mls @ 42 mls/hr IV Q23H DULCE Last Admin: 02/28/19 08:34 Dose: 42 mls/hr Mupirocin (Bactroban Ointment (For Decolonization) -) 1 applic NS BID DULCE Stop: 03/04/19 09:59 Last Admin: 02/28/19 09:46 Dose: 1 applic Ondansetron HCl (Zofran Injection) 4 mg IVPUSH Q6H PRN PRN Reason: NAUSEA Pantoprazole Sodium (Protonix Iv) 40 mg IVPUSH DAILY DULCE Last Admin: 02/28/19 09:45 Dose: 40 mg 73 year old woman with hx of Hypertension, Hyperlipidemia and Dementia who presented from home with AMS and Nausea with hyponatremia with serum sodium of 118 #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) #Altered Mental status #Hypertension #Lactic acidosis #Hyperlipidemia Serum Na now improved, could over the next 24 hours should be improvement of 4-6 would maintain off hypertonic saline or D5 for now and monitor Na levels over the next 6 hours if Na downtrends would start oral sodium chloride Urine studies consistent with SIADH however high urine na levels could also be related to diuretic effect would repeat urine Na, Urine OSM today given pt remains confused despite improvement in serum Na unlikely that hyponatremia also was contributing factor to confusion continue fluid restriction of 1L daily CK levels up to 1200 yesterday, monitor going forward Walter Yates DO
[2019-02-28 10:33] LABS: ANION GAP 6 MMOL/L (8-16); BLOOD UREA NITROGEN 7 mg/dL (7-18); CALCIUM 8.3 mg/dL (8.5-10.1); CHLORIDE 101 mmol/L (98-107); CO2 27 mmol/L (21-32); CREATININE 0.8 mg/dL (0.55-1.3); GLUCOSE,RANDOM 112 mg/dL (74-106); MAGNESIUM 2.7 mg/dL (1.8-2.4); PHOSPHOROUS 3.4 mg/dL (2.5-4.9); POTASSIUM 3.7 mmol/L (3.5-5.1); SODIUM 134 mmol/L (136-145)
--- NOTE | 2019-02-28 12:16 | PN ---
Physical Exam: SUBJECTIVE: Patient seen and examined at bedside- patient was very agitated and combative overnight pulled out multiple IV lines and received haldol- she denies any pain or complaints OBJECTIVE: Vital Signs Period Temp Pulse Resp BP Sys/Norris Pulse Ox Last 24 Hr 98 F-98.9 F 57-89 15-22 114-166/51-88 99-100 GENERAL: The patient is awake, alert oriented to self; however not to time or place EYES: PEERLA: EOMI; no scleral icterus. NECK: no JVD; no lymphadenopathy LUNGS: CTA B/L; no rales,rhonchi or wheezing HEART: Regular rate and rhythm, S1, S2 without murmur, rub or gallop. ABDOMEN: Soft, nontender, nondistended, normoactive bowel sounds, no guarding, no rebound, no hepatosplenomegaly, no masses. EXTREMITIES: 2+ pulses, warm, well-perfused, no edema. NEUROLOGICAL: Cranial nerves II through XII grossly intact. Normal speech, 5/5 strength UE and LE; sensation intact symmetrically throughout gait not observed. PSYCH: Normal mood, normal affect. SKIN: Warm, dry, normal turgor, no rashes or lesions noted Laboratory Results - last 24 hr 02/27/19 02/27/19 02/27/19 09:55 11:30 11:48 WBC RBC Hgb Hct MCV MCH MCHC RDW Plt Count MPV Absolute Neuts (auto) Neutrophils % Lymphocytes % Monocytes % Eosinophils % Basophils % Nucleated RBC % PT with INR INR Sodium 119 L* Potassium 3.9 Chloride 86 L Carbon Dioxide 24 Anion Gap 9 BUN 7 Creatinine 0.7 Creat Clearance w eGFR 82.02 POC Glucometer Random Glucose 206 H Lactic Acid Calcium 7.9 L Phosphorus 4.1 Magnesium 3.3 H Total Bilirubin 2.0 H Direct Bilirubin AST 33 ALT 19 Alkaline Phosphatase 102 Creatine Kinase 780 H Creatine Kinase Index 0.9 CK-MB (CK-2) 7.3 H Troponin I 0.02 B-Natriuretic Peptide 779.3 H Total Protein 6.5 Albumin 3.1 L TSH 0.28 L Urine Osmolality Ur Random Sodium Ur Random Potassium Ur Random Chloride Urine Creatinine 27.2 Influenza A (Rapid) Negative Influenza B (Rapid) Negative 02/27/19 02/27/19 02/27/19 12:14 13:00 13:00 WBC RBC Hgb Hct MCV MCH MCHC RDW Plt Count MPV Absolute Neuts (auto) Neutrophils % Lymphocytes % Monocytes % Eosinophils % Basophils % Nucleated RBC % PT with INR INR Sodium Potassium Chloride Carbon Dioxide Anion Gap BUN Creatinine Creat Clearance w eGFR POC Glucometer Random Glucose Lactic Acid Calcium Phosphorus Magnesium Total Bilirubin Direct Bilirubin AST ALT Alkaline Phosphatase Creatine Kinase 967 H Creatine Kinase Index 1.0 CK-MB (CK-2) 10.6 H Troponin I 0.03 B-Natriuretic Peptide Total Protein Albumin TSH Urine Osmolality 490 Ur Random Sodium 112 Ur Random Potassium 41.1 Ur Random Chloride 43 L Urine Creatinine Influenza A (Rapid) Influenza B (Rapid) 02/27/19 02/27/19 02/27/19 15:45 17:00 17:36 WBC RBC Hgb Hct MCV MCH MCHC RDW Plt Count MPV Absolute Neuts (auto) Neutrophils % Lymphocytes % Monocytes % Eosinophils % Basophils % Nucleated RBC % PT with INR INR Sodium 117 L* Potassium 4.3 Chloride 84 L Carbon Dioxide 24 Anion Gap 9 BUN 5 L Creatinine 0.6 Creat Clearance w eGFR 97.99 POC Glucometer 115 Random Glucose 120 H Lactic Acid Calcium 7.9 L Phosphorus Magnesium Total Bilirubin Direct Bilirubin 0.4 H Cancelled AST ALT Alkaline Phosphatase Creatine Kinase Creatine Kinase Index CK-MB (CK-2) Troponin I B-Natriuretic Peptide Total Protein Albumin TSH Urine Osmolality Ur Random Sodium Ur Random Potassium Ur Random Chloride Urine Creatinine Influenza A (Rapid) Influenza B (Rapid) 02/27/19 02/27/19 02/28/19 19:40 23:10 03:06 WBC RBC Hgb Hct MCV MCH MCHC RDW Plt Count MPV Absolute Neuts (auto) Neutrophils % Lymphocytes % Monocytes % Eosinophils % Basophils % Nucleated RBC % PT with INR INR Sodium 121 L 122 L 128 L Potassium 3.8 4.0 3.9 Chloride 88 L 90 L 96 L Carbon Dioxide 23 23 25 Anion Gap 10 9 8 BUN 6 L 7 7 Creatinine 0.6 0.8 0.8 Creat Clearance w eGFR 97.99 70.31 70.31 POC Glucometer Random Glucose 88 100 104 Lactic Acid Calcium 7.8 L 8.2 L 8.1 L Phosphorus Magnesium Total Bilirubin Direct Bilirubin AST ALT Alkaline Phosphatase Creatine Kinase 1506 H Creatine Kinase Index 0.9 CK-MB (CK-2) 14.9 H Troponin I B-Natriuretic Peptide Total Protein Albumin TSH Urine Osmolality Ur Random Sodium Ur Random Potassium Ur Random Chloride Urine Creatinine Influenza A (Rapid) Influenza B (Rapid) 02/28/19 02/28/19 02/28/19 05:30 05:30 05:30 WBC RBC Hgb Hct MCV MCH MCHC RDW Plt Count MPV Absolute Neuts (auto) Neutrophils % Lymphocytes % Monocytes % Eosinophils % Basophils % Nucleated RBC % PT with INR 13.30 H INR 1.13 H Sodium 130 L Potassium 4.0 Chloride 99 Carbon Dioxide 24 Anion Gap 8 BUN 7 Creatinine 0.7 Creat Clearance w eGFR 82.02 POC Glucometer Random Glucose 100 Lactic Acid 1.2 Calcium 8.2 L Phosphorus 2.9 Magnesium 2.5 H Total Bilirubin 2.2 H Direct Bilirubin AST 84 H ALT 29 Alkaline Phosphatase 93 Creatine Kinase Creatine Kinase Index CK-MB (CK-2) Troponin I B-Natriuretic Peptide Total Protein 6.4 Albumin 3.2 L TSH Urine Osmolality Ur Random Sodium Ur Random Potassium Ur Random Chloride Urine Creatinine Influenza A (Rapid) Influenza B (Rapid) 02/28/19 02/28/19 02/28/19 05:30 07:41 09:55 WBC 11.1 H RBC 4.67 Hgb 12.0 Hct 36.6 MCV 78.3 L MCH 25.6 L MCHC 32.7 RDW 13.9 Plt Count 281 MPV 7.9 Absolute Neuts (auto) 9.2 H Neutrophils % 82.7 Lymphocytes % 7.6 L D Monocytes % 9.3 Eosinophils % 0.0 D Basophils % 0.4 Nucleated RBC % 0 PT with INR INR Sodium 134 L Potassium 3.7 Chloride 101 Carbon Dioxide 27 Anion Gap 6 L BUN 7 Creatinine 0.8 Creat Clearance w eGFR 70.31 POC Glucometer 104 Random Glucose 112 H Lactic Acid Calcium 8.3 L Phosphorus 3.4 Magnesium 2.7 H Total Bilirubin Direct Bilirubin AST ALT Alkaline Phosphatase Creatine Kinase Creatine Kinase Index CK-MB (CK-2) Troponin I B-Natriuretic Peptide Total Protein Albumin TSH Urine Osmolality Ur Random Sodium Ur Random Potassium Ur Random Chloride Urine Creatinine Influenza A (Rapid) Influenza B (Rapid) Active Medications Generic Name Dose Route Start Last Admin Trade Name Freq PRN Reason Stop Dose Admin Chlorhexidine Gluconate 1 applic 02/27/19 22:00 02/27/19 22:32 Hibiclens For Decolonization - TP 1 applic HS [facility] Administration Diltiazem HCl 180 mg 02/27/19 16:45 02/28/19 09:45 Cardizem Cd - PO 180 mg DAILY [facility] Administration Enoxaparin Sodium 40 mg 02/27/19 10:00 02/28/19 09:45 Lovenox - SQ 40 mg DAILY [facility] Administration Ceftriaxone Sodium 1 gm/ 50 mls @ 100 mls/hr 02/28/19 01:21 02/28/19 02:22 Dextrose IVPB 100 mls/hr DAILY [facility] Administration Protocol Mupirocin 1 applic 02/27/19 10:00 02/28/19 09:46 Bactroban Ointment (For Decolonization) - NS 03/04/19 09:59 1 applic BID [facility] Administration Ondansetron HCl 4 mg 02/27/19 05:28 Zofran Injection IVPUSH Q6H PRN NAUSEA Pantoprazole Sodium 40 mg 02/27/19 10:00 02/28/19 09:45 Protonix Iv IVPUSH 40 mg DAILY [facility] Administration ASSESSMENT/PLAN: 73 y/o female with PMH of HTN, HLD, dementia was brought into the ED from home by her son after she was found to have nausea, vomiting, AMS and was found to be hyponatremic to 117 on admission. 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 (likely 2/2 HCTZ use) -nephro on board -most recent sodium was 134 this AM -BMP q6h -avoid overcorrection ( no more than 8-10 in 24hrs) #HTN -holding HCTZ -cardizem 180 daily #HLD holding statin for now given elevated CK level f/u repeat CK #Dementia holding aricept given AMS DVT PPX: lovenox 40 SQ GI PPX: protonix F/E/N not on fluids BMP q6H Problem List - Problems (1) Altered mental state Code(s): R41.82 - ALTERED MENTAL STATUS, UNSPECIFIED Qualifiers: Altered mental status type: disorientation Qualified Code(s): R41.0 - Disorientation, unspecified (2) Dementia Code(s): F03.90 - UNSPECIFIED DEMENTIA WITHOUT BEHAVIORAL DISTURBANCE (3) HLD (hyperlipidemia) Code(s): E78.5 - HYPERLIPIDEMIA, UNSPECIFIED Qualifiers: Hyperlipidemia type: unspecified Qualified Code(s): E78.5 - Hyperlipidemia , unspecified (4) HTN (hypertension) Code(s): I10 - ESSENTIAL (PRIMARY) HYPERTENSION Qualifiers: Hypertension type: essential hypertension Qualified Code(s): I10 - Essential (primary) hypertension (5) Hyponatremia Code(s): E87.1 - HYPO-OSMOLALITY AND HYPONATREMIA Visit type - Emergency Visit Emergency Visit: Yes ED Registration Date: 02/27/19 Care time: The patient presented to the Emergency Department on the above date and was hospitalized for further evaluation of their emergent condition. - New Patient This patient is new to me today: Yes Date on this admission: 02/28/19 - Critical Care Critical Care patient: No
--- NOTE | 2019-02-28 12:53 | PN ---
Teaching Attending Note Name of Resident: Surya Kirby ATTENDING PHYSICIAN STATEMENT I saw and evaluated the patient. I reviewed the resident's note and discussed the case with the resident. I agree with the resident's findings and plan as documented. SUBJECTIVE: Pt seen and examined in the ICU. Mental status improving. Serum sodium correcting. OBJECTIVE: Vital Signs Period Temp Pulse Resp BP Sys/Norris Pulse Ox Last 24 Hr 98 F-99.3 F 55-89 15-22 114-166/51-88 99-100 Intake & Output 02/25/19 02/26/19 02/27/19 02/28/19 23:59 23:59 23:59 23:59 Intake Total 1375 Output Total 2200 1000 Balance -825 -1000 Weight 48.398 kg 46.437 kg Gen: less confused Heart: RRR Lung: decreased breath sounds at the bases Abd: soft, nontender Ext: no edema CBC, BMP 02/28/19 05:30 Active Medications Chlorhexidine Gluconate (Hibiclens For Decolonization -) 1 applic TP HS [facility] Last Admin: 02/27/19 22:32 Dose: 1 applic Diltiazem HCl (Cardizem Cd -) 180 mg PO DAILY [facility] Last Admin: 02/28/19 09:45 Dose: 180 mg Enoxaparin Sodium (Lovenox -) 40 mg SQ DAILY [facility] Last Admin: 02/28/19 09:45 Dose: 40 mg Ceftriaxone Sodium 1 gm/ (Dextrose) 50 mls @ 100 mls/hr IVPB DAILY [facility]; Protocol Last Admin: 02/28/19 02:22 Dose: 100 mls/hr Mupirocin (Bactroban Ointment (For Decolonization) -) 1 applic NS BID [facility] Stop: 03/04/19 09:59 Last Admin: 02/28/19 09:46 Dose: 1 applic Ondansetron HCl (Zofran Injection) 4 mg IVPUSH Q6H PRN PRN Reason: NAUSEA Pantoprazole Sodium (Protonix Iv) 40 mg IVPUSH DAILY [facility] Last Admin: 02/28/19 09:45 Dose: 40 mg ASSESSMENT AND PLAN: Severe Hyponatremia improving Altered Mental Status improving Lactic Acidosis HTN Hyperlipidemia Dementia - fluid restriction - monitor sodium level - PO as tolerated - DVT prophylaxis - can monitor on floor
[2019-02-28 13:40] LABS: ANION GAP 6 MMOL/L (8-16); BLOOD UREA NITROGEN 7 mg/dL (7-18); CALCIUM 8.5 mg/dL (8.5-10.1); CHLORIDE 103 mmol/L (98-107); CO2 27 mmol/L (21-32); CREATININE 0.8 mg/dL (0.55-1.3); GLUCOSE,RANDOM 91 mg/dL (74-106); POTASSIUM 3.8 mmol/L (3.5-5.1); SODIUM 136 mmol/L (136-145)
--- NOTE | 2019-02-28 14:04 | PN ---
Progress Note (short form) - Note Progress Note: doing well sodium is correcting Vital Signs Period Temp Pulse Resp BP Sys/Norris Pulse Ox Last 24 Hr 98 F-99.3 F 55-89 15-22 114-166/51-88 99-100 cor-rrr lungs clear abd soft,nt ext no edema CBC, BMP 02/28/19 05:30 02/28/19 12:40 Microbiology 02/27/19 02:59 Urine - Urine Clean Catch Urine Culture - Final NO GROWTH OBTAINED 02/27/19 01:32 Blood - Peripheral Venous Blood Culture - Preliminary NO GROWTH OBTAINED AFTER 24 HOURS, INCUBATION TO CONTINUE FOR 4 DAYS. 02/27/19 01:39 Blood - Peripheral Venous Blood Culture - Preliminary NO GROWTH OBTAINED AFTER 24 HOURS, INCUBATION TO CONTINUE FOR [address] scan - no acute process a/p hyponatremia resolved lactic acidosis resolved overall improving will sign off please call back if needed Problem List - Problems (1) Vomiting Code(s): R11.10 - VOMITING, UNSPECIFIED (2) Lactic acidosis Code(s): E87.2 - ACIDOSIS (3) Hyponatremia Code(s): E87.1 - HYPO-OSMOLALITY AND HYPONATREMIA
--- NOTE | 2019-02-28 14:44 | EKG ---
Test Reason : Blood Pressure : / mmHG Vent. Rate : 063 BPM Atrial Rate : 063 BPM P-R Int : 196 ms QRS Dur : 106 ms QT Int : 490 ms P-R-T Axes : 055 067 066 degrees QTc Int : 501 ms NORMAL SINUS RHYTHM PROLONGED QT ABNORMAL ECG WHEN COMPARED WITH ECG OF 27-FEB-2019 01:09, ST NO LONGER DEPRESSED IN LATERAL LEADS NONSPECIFIC T WAVE ABNORMALITY NO LONGER EVIDENT IN INFERIOR LEADS T WAVE AMPLITUDE HAS INCREASED IN LATERAL LEADS Confirmed by Herb Santoro ([id number]) on 02/28/2019 2:44:15 PM Referred By: KULWINDER QUICK DR Confirmed By:Herb Santoro
[2019-02-28] MEDS: CHLORHEXIDINE GLUCONATE 4% CLEANSER FOR DECOLONIZATION TP SCH (22:03)
[2019-02-28] MEDS ORDERED: ONDANSETRON 4 MG/2 ML VIAL IVPUSH PRN (22:44)
[2019-03-01 07:04] LABS: HEMATOCRIT 37.7 % (32.4-45.2); HEMOGLOBIN 12.5 GM/dL (10.7-15.3); MCH 26.5 pg (25.7-33.7); MCHC 33.2 g/dl (32.0-36.0); MEAN CELL VOLUME 79.7 fl (80-96); MEAN PLT VOLUME 8.2 fl (7.5-11.1); PLATELET COUNT 311 K/MM3 (134-434); RBC 4.74 M/mm3 (3.60-5.2); RDW 14.2 % (11.6-15.6); WHITE BLOOD COUNT 9.7 K/mm3 (4.0-10.0)
[2019-03-01 07:32] LABS: ANION GAP 8 MMOL/L (8-16); BLOOD UREA NITROGEN 9 mg/dL (7-18); CALCIUM 8.7 mg/dL (8.5-10.1); CHLORIDE 104 mmol/L (98-107); CO2 27 mmol/L (21-32); CREATININE 0.9 mg/dL (0.55-1.3); GLUCOSE,RANDOM 112 mg/dL (74-106); MAGNESIUM 2.3 mg/dL (1.8-2.4); PHOSPHOROUS 2.7 mg/dL (2.5-4.9); POTASSIUM 4.2 mmol/L (3.5-5.1); SODIUM 138 mmol/L (136-145)
--- NOTE | 2019-03-01 09:05 | PN ---
Physical Exam: SUBJECTIVE: Patient seen and examined at bedside- no acute events overnight; patient was calm overnight and seems more oriented this AM however is still not sure exactly why she was brought to the hospital however has no complaints; denies CP/SOB/N/V OBJECTIVE: Vital Signs Period Temp Pulse Resp BP Sys/Norris Pulse Ox Last 24 Hr 99.0 F-99.4 F 55-81 13-20 106-151/48-85 99-100 GENERAL: The patient is awake, alert, orineted to self and place but not time EYES: PEERLA; EOMI; no scleral icterus . NECK: no JVD: no lymphadenopathy LUNGS:CTA B/L; no rales, rhonchi or wheezing HEART: Regular rate and rhythm, S1, S2 without murmur, rub or gallop. ABDOMEN: Soft, nontender, nondistended, normoactive bowel sounds, no guarding, no rebound, no hepatosplenomegaly, no masses. EXTREMITIES: 2+ pulses, warm, well-perfused, no edema. NEUROLOGICAL: Cranial nerves II through XII grossly intact. Normal speech 5/5 strength UE and LE B/L; sensation intact symmetrically throughout, gait not observed. PSYCH: Normal mood, normal affect. SKIN: Warm, dry, normal turgor, no rashes or lesions noted Laboratory Results - last 24 hr 02/28/19 02/28/19 02/28/19 05:30 09:55 12:40 WBC RBC Hgb Hct MCV MCH MCHC RDW Plt Count MPV Sodium 134 L 136 Potassium 3.7 3.8 Chloride 101 103 Carbon Dioxide 27 27 Anion Gap 6 L 6 L BUN 7 7 Creatinine 0.8 0.8 Creat Clearance w eGFR 70.31 70.31 POC Glucometer Random Glucose 112 H 91 Lactic Acid 1.2 Calcium 8.3 L 8.5 Phosphorus 3.4 Magnesium 2.7 H Creatine Kinase 2938 H Creatine Kinase Index 0.6 CK-MB (CK-2) 17.9 H Urine Osmolality Ur Random Sodium 02/28/19 02/28/19 02/28/19 15:00 15:00 17:33 WBC RBC Hgb Hct MCV MCH MCHC RDW Plt Count MPV Sodium Potassium Chloride Carbon Dioxide Anion Gap BUN Creatinine Creat Clearance w eGFR POC Glucometer 83 Random Glucose Lactic Acid Calcium Phosphorus Magnesium Creatine Kinase Creatine Kinase Index CK-MB (CK-2) Urine Osmolality 128 L Ur Random Sodium 18 L 03/01/19 03/01/19 03/01/19 05:30 05:30 05:30 WBC 9.7 RBC 4.74 Hgb 12.5 Hct 37.7 MCV 79.7 L MCH 26.5 MCHC 33.2 RDW 14.2 Plt Count 311 MPV 8.2 Sodium 138 Potassium 4.2 Chloride 104 Carbon Dioxide 27 Anion Gap 8 BUN 9 Creatinine 0.9 Creat Clearance w eGFR 61.38 POC Glucometer Random Glucose 112 H Lactic Acid Calcium 8.7 Phosphorus 2.7 Magnesium 2.3 Creatine Kinase 3485 H Creatine Kinase Index 0.7 CK-MB (CK-2) 24.2 H Urine Osmolality Ur Random Sodium 03/01/19 05:30 WBC RBC Hgb Hct MCV MCH MCHC RDW Plt Count MPV Sodium Potassium Chloride Carbon Dioxide Anion Gap BUN Creatinine Creat Clearance w eGFR POC Glucometer Random Glucose Lactic Acid Calcium Phosphorus Magnesium Creatine Kinase Creatine Kinase Index CK-MB (CK-2) 24.2 H Urine Osmolality Ur Random Sodium Active Medications Generic Name Dose Route Start Last Admin Trade Name Freq PRN Reason Stop Dose Admin Diltiazem HCl 180 mg 03/01/19 10:00 Cardizem Cd - PO DAILY D[facility] Enoxaparin Sodium 40 mg 03/01/19 10:00 Lovenox - SQ DAILY D[facility] Ondansetron HCl 4 mg 02/28/19 22:44 Zofran Injection IVPUSH Q6H PRN NAUSEA Pantoprazole Sodium 40 mg 03/01/19 10:00 Protonix Iv IVPUSH DAILY [facility] ASSESSMENT/PLAN: 73 y/o female with PMH of HTN, HLD, dementia was brought into the ED from home by her son after she was found to have nausea, vomiting, AMS and was found to be hyponatremic to 117 on admission. 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 (likely 2/2 HCTZ use) -nephro on board -most recent sodium was 138 this AM -c/w fluid restriction to 1L #HTN -holding HCTZ -cardizem 180 daily #HLD holding statin for now given elevated CK level repeat CK elevated this morning at 2938 if above 5000 may have to start fluids #Dementia holding aricept given AMS DVT PPX: lovenox 40 SQ GI PPX: protonix F/E/N not on fluids regular diet Problem List - Problems (1) Altered mental state Code(s): R41.82 - ALTERED MENTAL STATUS, UNSPECIFIED Qualifiers: Altered mental status type: disorientation Qualified Code(s): R41.0 - Disorientation, unspecified (2) Dementia Code(s): F03.90 - UNSPECIFIED DEMENTIA WITHOUT BEHAVIORAL DISTURBANCE (3) HLD (hyperlipidemia) Code(s): E78.5 - HYPERLIPIDEMIA, UNSPECIFIED Qualifiers: Hyperlipidemia type: unspecified Qualified Code(s): E78.5 - Hyperlipidemia , unspecified (4) HTN (hypertension) Code(s): I10 - ESSENTIAL (PRIMARY) HYPERTENSION Qualifiers: Hypertension type: essential hypertension Qualified Code(s): I10 - Essential (primary) hypertension (5) Hyponatremia Code(s): E87.1 - HYPO-OSMOLALITY AND HYPONATREMIA Visit type - Emergency Visit Emergency Visit: Yes ED Registration Date: 02/27/19 Care time: The patient presented to the Emergency Department on the above date and was hospitalized for further evaluation of their emergent condition. - New Patient This patient is new to me today: No - Critical Care Critical Care patient: No
[2019-03-01] MEDS: ENOXAPARIN NA (PORCINE) 40 MG/0.4 ML DISP.SYRIN SQ SCH (09:35)
[2019-03-01] MEDS ORDERED: PANTOPRAZOLE SODIUM 40 MG VIAL IVPUSH SCH (10:00)
--- NOTE | 2019-03-01 15:06 | PN ---
Teaching Attending Note Name of Resident: Adelaida Trujillo ATTENDING PHYSICIAN STATEMENT I saw and evaluated the patient. I reviewed the resident's note and discussed the case with the resident. I agree with the resident's findings and plan as documented. SUBJECTIVE: no fever or chills. no DIAMOND , no pain. feels at her usual health. OBJECTIVE: NAD, awake, alert knows location, age, year but not president . has sweat in axillae CV: RRR, 3/6 SM at RUSb with readiation to carotids and 3/6 SM At apex with radiation to L axilla Lungs: CTAB Ext : no edema . bruising on dorsal R hand Abd: soft, Nt, Nd , NL BS ASSESSMENT AND PLAN: 73 y/o lady with h/o HTN, HL, dementia who presented with AMS and was found to have hyponatremia . 1- Hyponatremia: urine studies indicate SIADH, and responded to fluid restriction HCTZ might be contributing as well as it was started few days prior to admission - cont to hold HCTZ. will not resume - monitor on fluid restriction - will need work up for SIADH : order a Ct of chest . 2- Elevated CPK: no clear etiology. ? due to statin vs Rhabdo - monitor CPK and renal function - hold statin 3- Lactic acidosis : resolved. off Abx . 4- AMS : metabolic encephalopathy. resolved. per family at bedside, pt is at her base line 5- L ovarian cyst on CT scan: f/u as out pt with US and [employer] eval 6- Thickened esophagus on CT scan. follo wup with GI as out pt for EGD DVT px : lovenox
[2019-03-01 16:13] VITALS: BMI 21.4
--- NOTE | 2019-03-01 16:24 | PN ---
Progress Note (short form) - Note Progress Note: Renal follow up for Hyponatremia Pt seen and examined at the bedside awake and alert appears back to normal MS no acute complaints Vital Signs Temperature 99.2 F 02/28/19 19:10 Pulse Rate 78 02/28/19 20:00 Respiratory Rate 20 02/28/19 21:00 Blood Pressure 129/48 L 02/28/19 20:00 O2 Sat by Pulse Oximetry (%) 100 02/28/19 21:00 Intake & Output 02/26/19 02/27/19 02/28/19 03/01/19 23:59 23:59 23:59 23:59 Intake Total 1375 324 625 Output Total 2200 2100 Balance -825 -1776 625 Weight 48.398 kg 46.437 kg 48.081 kg NAD awake and alert but confused neck supple, no JVD MMM RRR, no M/R CTA soft NT/ND no LE edema, clubbing or cyanosis CBC, BMP 03/01/19 05:30 03/01/19 05:30 Current Medications Diltiazem HCl (Cardizem Cd -) 180 mg PO DAILY [facility] Last Admin: 03/01/19 09:36 Dose: 180 mg Enoxaparin Sodium (Lovenox -) 40 mg SQ DAILY [facility] Last Admin: 03/01/19 09:35 Dose: 40 mg Ondansetron HCl (Zofran Injection) 4 mg IVPUSH Q6H PRN PRN Reason: NAUSEA Pantoprazole Sodium (Protonix Iv) 40 mg IVPUSH DAILY [facility] Last Admin: 03/01/19 09:35 Dose: 40 mg 73 year old woman with hx of Hypertension, Hyperlipidemia and Dementia who presented from home with AMS and Nausea with hyponatremia with serum sodium of 118 #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) #Altered Mental status #Hypertension #Lactic acidosis #Hyperlipidemia Serum Na now improved to normal and so has mental status would trend serum na off fluids will liberalize fluid restriction to 1.5L to allow hydration as pt has elevated CK levels on signs of renal injury at this time and unlikely to do so unless CK levels > 5000 oral hydration as tolerated repeat urine studies today Walter Yates DO
[2019-03-01 18:40] LABS: ANION GAP 7 MMOL/L (8-16); BLOOD UREA NITROGEN 8 mg/dL (7-18); CALCIUM 8.9 mg/dL (8.5-10.1); CHLORIDE 103 mmol/L (98-107); CO2 29 mmol/L (21-32); CREATININE 0.8 mg/dL (0.55-1.3); GLUCOSE,RANDOM 117 mg/dL (74-106); POTASSIUM 3.9 mmol/L (3.5-5.1); SODIUM 139 mmol/L (136-145)
[2019-03-01 19:58] LABS: EPI CELLS 1.6 /HPF (0-5); PH,URINE 5.5 (5.0-8.0); URINE APPEARANCE CLOUDY; URINE BACTERIA 2.9 /hpf (NEGATIVE); URINE BILIRUBIN NEGATIVE (NEGATIVE); URINE CASTS 1 /hpf (0-8); URINE COLOR YELLOW; URINE GLUCOSE (UA) NEGATIVE (NEGATIVE); URINE KETONE NEGATIVE (NEGATIVE); URINE LEUK ESTERASE 1+ (NEGATIVE); URINE NITRITE NEGATIVE (NEGATIVE); URINE PROTEIN NEGATIVE (NEGATIVE); URINE RBC 15 /hpf (0-4); URINE UROBILINOGEN 0.2 mg/dL (0.2-1.0); URINE WBC 12 /hpf (0-5)
[2019-03-01] MEDS ORDERED: LISINOPRIL 10 MG TABLET (FP) PO ONE (20:32)
--- NOTE | 2019-03-02 08:13 | PN ---
Physical Exam: SUBJECTIVE: Patient seen and examined at bedside- no acute events overnight; patient is feeling much better she denies any CP/SOB/N/V fevers or chills; she is back to her baseline mental status OBJECTIVE: Vital Signs Period Temp Pulse Resp BP Sys/Norris Pulse Ox Last 24 Hr 98 F-99.1 F 69-77 20-20 161-199/73-88 96 GENERAL: The patient is awake, alert, and fully oriented, in no acute distress. EYES: PEERLA: EOMI; no scleral icterus NECK: no JVD: no lymphadenopathy LUNGS: CTA B/L; no rales, rhonchi or wheezing HEART: Regular rate and rhythm, S1, S2 without murmur, rub or gallop. ABDOMEN: Soft, nontender, nondistended, normoactive bowel sounds, no guarding, no rebound, no hepatosplenomegaly, no masses. EXTREMITIES: 2+ pulses, warm, well-perfused, no edema. NEUROLOGICAL: Cranial nerves II through XII grossly intact. Normal speech, gait not observed. 5/5 strength B/L UE and LE sensation intact symmetrically throughout PSYCH: Normal mood, normal affect. SKIN: Warm, dry, normal turgor, no rashes or lesions noted Laboratory Results - last 24 hr 03/01/19 03/01/19 03/01/19 05:30 05:30 11:25 Sodium Potassium Chloride Carbon Dioxide Anion Gap BUN Creatinine Creat Clearance w eGFR POC Glucometer 103 Random Glucose Calcium Creatine Kinase Index 0.7 CK-MB (CK-2) 24.2 H Urine Color Urine Appearance Urine pH Ur Specific [place] Urine Protein Urine Glucose (UA) Urine Ketones Urine Blood Urine Nitrite Urine Bilirubin Urine Urobilinogen Ur Leukocyte Esterase Urine WBC (Auto) Urine RBC (Auto) Urine Casts (Auto) U Epithel Cells (Auto) Urine Bacteria (Auto) Urine Osmolality Ur Random Sodium 03/01/19 03/01/19 03/01/19 16:38 16:40 16:40 Sodium Potassium Chloride Carbon Dioxide Anion Gap BUN Creatinine Creat Clearance w eGFR POC Glucometer 128 Random Glucose Calcium Creatine Kinase Index CK-MB (CK-2) Urine Color Urine Appearance Urine pH Ur Specific [place] Urine Protein Urine Glucose (UA) Urine Ketones Urine Blood Urine Nitrite Urine Bilirubin Urine Urobilinogen Ur Leukocyte Esterase Urine WBC (Auto) Urine RBC (Auto) Urine Casts (Auto) U Epithel Cells (Auto) Urine Bacteria (Auto) Urine Osmolality 257 L Ur Random Sodium 41 03/01/19 03/01/19 03/01/19 16:40 17:10 23:09 Sodium 139 Potassium 3.9 Chloride 103 Carbon Dioxide 29 Anion Gap 7 L BUN 8 Creatinine 0.8 Creat Clearance w eGFR 70.31 POC Glucometer 144 Random Glucose 117 H Calcium 8.9 Creatine Kinase Index CK-MB (CK-2) Urine Color Yellow Urine Appearance Cloudy Urine pH 5.5 Ur Specific [place] 1.008 L Urine Protein Negative Urine Glucose (UA) Negative Urine Ketones Negative Urine Blood 2+ H Urine Nitrite Negative Urine Bilirubin Negative Urine Urobilinogen 0.2 Ur Leukocyte Esterase 1+ H Urine WBC (Auto) 12 Urine RBC (Auto) 15 Urine Casts (Auto) 1 U Epithel Cells (Auto) 1.6 Urine Bacteria (Auto) 2.9 Urine Osmolality Ur Random Sodium 03/02/19 06:47 Sodium Potassium Chloride Carbon Dioxide Anion Gap BUN Creatinine Creat Clearance w eGFR POC Glucometer 126 Random Glucose Calcium Creatine Kinase Index CK-MB (CK-2) Urine Color Urine Appearance Urine pH Ur Specific [place] Urine Protein Urine Glucose (UA) Urine Ketones Urine Blood Urine Nitrite Urine Bilirubin Urine Urobilinogen Ur Leukocyte Esterase Urine WBC (Auto) Urine RBC (Auto) Urine Casts (Auto) U Epithel Cells (Auto) Urine Bacteria (Auto) Urine Osmolality Ur Random Sodium Active Medications Generic Name Dose Route Start Last Admin Trade Name Freq PRN Reason Stop Dose Admin Diltiazem HCl 180 mg 03/01/19 10:00 03/01/19 09:36 Cardizem Cd - PO 180 mg DAILY DULCE Administration Donepezil HCl 5 mg 03/02/19 22:00 Aricept - PO HS DULCE Enoxaparin Sodium 40 mg 03/01/19 10:00 03/01/19 09:35 Lovenox - SQ 40 mg DAILY DULCE Administration Lisinopril 10 mg 03/02/19 10:00 Prinivil PO DAILY DULCE Ondansetron HCl 4 mg 02/28/19 22:44 Zofran Injection IVPUSH Q6H PRN NAUSEA Pantoprazole Sodium 40 mg 03/01/19 10:00 03/01/19 09:35 Protonix Iv IVPUSH 40 mg DAILY DULCE Administration ASSESSMENT/PLAN: 73 y/o female with PMH of HTN, HLD, dementia was brought into the ED from home by her son after she was found to have nausea, vomiting, AMS and was found to be hyponatremic to 117 on admission. 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 (likely 2/2 HCTZ use) -nephro on board -most recent sodium was 139 this AM -c/w fluid restriction to 1.5L #HTN -holding HCTZ -cardizem 180 daily -added lisinopril 10mg daily since her BP was elevated overnight #HLD holding statin for now given elevated CK level repeat CK trending down: 2842 this AM from 3485 if above 5000 may have to start fluids #Dementia restart aricept DVT PPX: lovenox 40 SQ GI PPX: protonix F/E/N not on fluids regular diet Problem List - Problems (1) Altered mental state Code(s): R41.82 - ALTERED MENTAL STATUS, UNSPECIFIED Qualifiers: Altered mental status type: disorientation Qualified Code(s): R41.0 - Disorientation, unspecified (2) Dementia Code(s): F03.90 - UNSPECIFIED DEMENTIA WITHOUT BEHAVIORAL DISTURBANCE (3) HLD (hyperlipidemia) Code(s): E78.5 - HYPERLIPIDEMIA, UNSPECIFIED Qualifiers: Hyperlipidemia type: unspecified Qualified Code(s): E78.5 - Hyperlipidemia , unspecified (4) HTN (hypertension) Code(s): I10 - ESSENTIAL (PRIMARY) HYPERTENSION Qualifiers: Hypertension type: essential hypertension Qualified Code(s): I10 - Essential (primary) hypertension (5) Hyponatremia Code(s): E87.1 - HYPO-OSMOLALITY AND HYPONATREMIA Visit type - Emergency Visit Emergency Visit: Yes ED Registration Date: 02/27/19 Care time: The patient presented to the Emergency Department on the above date and was hospitalized for further evaluation of their emergent condition. - New Patient This patient is new to me today: No - Critical Care Critical Care patient: No
[2019-03-02 08:34] LABS: HEMATOCRIT 37.3 % (32.4-45.2); HEMOGLOBIN 12.3 GM/dL (10.7-15.3); MCH 26.6 pg (25.7-33.7); MCHC 33.1 g/dl (32.0-36.0); MEAN CELL VOLUME 80.2 fl (80-96); PLATELET COUNT 301 K/MM3 (134-434); RBC 4.64 M/mm3 (3.60-5.2); RDW 14.1 % (11.6-15.6); WHITE BLOOD COUNT 8.5 K/mm3 (4.0-10.0)
[2019-03-02 09:09] LABS: ANION GAP 8 MMOL/L (8-16); BLOOD UREA NITROGEN 9 mg/dL (7-18); CALCIUM 8.7 mg/dL (8.5-10.1); CHLORIDE 103 mmol/L (98-107); CO2 27 mmol/L (21-32); CREATININE 0.9 mg/dL (0.55-1.3); GLUCOSE,RANDOM 136 mg/dL (74-106); MAGNESIUM 2.3 mg/dL (1.8-2.4); PHOSPHOROUS 3.2 mg/dL (2.5-4.9); POTASSIUM 3.7 mmol/L (3.5-5.1); SODIUM 138 mmol/L (136-145)
[2019-03-02] MEDS ORDERED: LISINOPRIL 20 MG TABLET (FP) PO SCH (10:00)
[2019-03-02] MEDS: LISINOPRIL 10 MG TABLET (FP) PO SCH (10:31)
[2019-03-02] MEDS: PANTOPRAZOLE 40 MG TABLET (FP) PO SCH (10:31)
[2019-03-02] MEDS: ENOXAPARIN NA (PORCINE) 40 MG/0.4 ML DISP.SYRIN SQ SCH (10:31)
--- NOTE | 2019-03-02 10:33 | PN ---
Progress Note (short form) - Note Progress Note: Overall feeling better. Mental status back to baseline. No acute events overnight. Intake & Output 02/27/19 02/28/19 03/01/19 03/02/19 23:59 23:59 23:59 23:59 Intake Total 1375 324 875 250 Output Total 2200 2100 Balance -825 -4706 875 250 Weight 106 lb 11.2 oz 102 lb 6 oz 106 lb 110 lb 2 oz Last Vital Signs Temp Pulse Resp BP Pulse Ox 99.1 F 72 20 176/78 H 96 03/02/19 06:00 03/02/19 06:00 03/02/19 06:00 03/02/19 06:00 03/02/19 09:00 Laboratory Results - last 24 hr 03/01/19 03/01/19 03/01/19 11:25 16:38 16:40 WBC RBC Hgb Hct MCV MCH MCHC RDW Plt Count MPV Sodium Potassium Chloride Carbon Dioxide Anion Gap BUN Creatinine Creat Clearance w eGFR POC Glucometer 103 128 Random Glucose Calcium Phosphorus Magnesium Creatine Kinase Creatine Kinase Index CK-MB (CK-2) Urine Color Urine Appearance Urine pH Ur Specific [place] Urine Protein Urine Glucose (UA) Urine Ketones Urine Blood Urine Nitrite Urine Bilirubin Urine Urobilinogen Ur Leukocyte Esterase Urine WBC (Auto) Urine RBC (Auto) Urine Casts (Auto) U Epithel Cells (Auto) Urine Bacteria (Auto) Urine Osmolality 257 L Ur Random Sodium 03/01/19 03/01/19 03/01/19 16:40 16:40 17:10 WBC RBC Hgb Hct MCV MCH MCHC RDW Plt Count MPV Sodium 139 Potassium 3.9 Chloride 103 Carbon Dioxide 29 Anion Gap 7 L BUN 8 Creatinine 0.8 Creat Clearance w eGFR 70.31 POC Glucometer Random Glucose 117 H Calcium 8.9 Phosphorus Magnesium Creatine Kinase Creatine Kinase Index CK-MB (CK-2) Urine Color Yellow Urine Appearance Cloudy Urine pH 5.5 Ur Specific [place] 1.008 L Urine Protein Negative Urine Glucose (UA) Negative Urine Ketones Negative Urine Blood 2+ H Urine Nitrite Negative Urine Bilirubin Negative Urine Urobilinogen 0.2 Ur Leukocyte Esterase 1+ H Urine WBC (Auto) 12 Urine RBC (Auto) 15 Urine Casts (Auto) 1 U Epithel Cells (Auto) 1.6 Urine Bacteria (Auto) 2.9 Urine Osmolality Ur Random Sodium 41 03/01/19 03/02/19 03/02/19 23:09 06:47 08:04 WBC 8.5 RBC 4.64 Hgb 12.3 Hct 37.3 MCV 80.2 MCH 26.6 MCHC 33.1 RDW 14.1 Plt Count 301 MPV 8.0 Sodium Potassium Chloride Carbon Dioxide Anion Gap BUN Creatinine Creat Clearance w eGFR POC Glucometer 144 126 Random Glucose Calcium Phosphorus Magnesium Creatine Kinase Creatine Kinase Index CK-MB (CK-2) Urine Color Urine Appearance Urine pH Ur Specific [place] Urine Protein Urine Glucose (UA) Urine Ketones Urine Blood Urine Nitrite Urine Bilirubin Urine Urobilinogen Ur Leukocyte Esterase Urine WBC (Auto) Urine RBC (Auto) Urine Casts (Auto) U Epithel Cells (Auto) Urine Bacteria (Auto) Urine Osmolality Ur Random Sodium 03/02/19 03/02/19 03/02/19 08:04 08:04 08:04 WBC RBC Hgb Hct MCV MCH MCHC RDW Plt Count MPV Sodium 138 Potassium 3.7 Chloride 103 Carbon Dioxide 27 Anion Gap 8 BUN 9 Creatinine 0.9 Creat Clearance w eGFR 61.38 POC Glucometer Random Glucose 136 H Calcium 8.7 Phosphorus 3.2 Magnesium 2.3 Creatine Kinase 2842 H Creatine Kinase Index 0.5 CK-MB (CK-2) 14.3 H 14.3 H Urine Color Urine Appearance Urine pH Ur Specific [place] Urine Protein Urine Glucose (UA) Urine Ketones Urine Blood Urine Nitrite Urine Bilirubin Urine Urobilinogen Ur Leukocyte Esterase Urine WBC (Auto) Urine RBC (Auto) Urine Casts (Auto) U Epithel Cells (Auto) Urine Bacteria (Auto) Urine Osmolality Ur Random Sodium Gen: Awake and alert, NAD Heart: RRR Lung: decreased breath sounds at the bases Abd: soft, nontender Ext: no edema Laboratory Results - last 24 hr 03/01/19 03/01/19 03/01/19 11:25 16:38 16:40 WBC RBC Hgb Hct MCV MCH MCHC RDW Plt Count MPV Sodium Potassium Chloride Carbon Dioxide Anion Gap BUN Creatinine Creat Clearance w eGFR POC Glucometer 103 128 Random Glucose Calcium Phosphorus Magnesium Creatine Kinase Creatine Kinase Index CK-MB (CK-2) Urine Color Urine Appearance Urine pH Ur Specific [place] Urine Protein Urine Glucose (UA) Urine Ketones Urine Blood Urine Nitrite Urine Bilirubin Urine Urobilinogen Ur Leukocyte Esterase Urine WBC (Auto) Urine RBC (Auto) Urine Casts (Auto) U Epithel Cells (Auto) Urine Bacteria (Auto) Urine Osmolality 257 L Ur Random Sodium 03/01/19 03/01/19 03/01/19 16:40 16:40 17:10 WBC RBC Hgb Hct MCV MCH MCHC RDW Plt Count MPV Sodium 139 Potassium 3.9 Chloride 103 Carbon Dioxide 29 Anion Gap 7 L BUN 8 Creatinine 0.8 Creat Clearance w eGFR 70.31 POC Glucometer Random Glucose 117 H Calcium 8.9 Phosphorus Magnesium Creatine Kinase Creatine Kinase Index CK-MB (CK-2) Urine Color Yellow Urine Appearance Cloudy Urine pH 5.5 Ur Specific [place] 1.008 L Urine Protein Negative Urine Glucose (UA) Negative Urine Ketones Negative Urine Blood 2+ H Urine Nitrite Negative Urine Bilirubin Negative Urine Urobilinogen 0.2 Ur Leukocyte Esterase 1+ H Urine WBC (Auto) 12 Urine RBC (Auto) 15 Urine Casts (Auto) 1 U Epithel Cells (Auto) 1.6 Urine Bacteria (Auto) 2.9 Urine Osmolality Ur Random Sodium 41 03/01/19 03/02/19 03/02/19 23:09 06:47 08:04 WBC 8.5 RBC 4.64 Hgb 12.3 Hct 37.3 MCV 80.2 MCH 26.6 MCHC 33.1 RDW 14.1 Plt Count 301 MPV 8.0 Sodium Potassium Chloride Carbon Dioxide Anion Gap BUN Creatinine Creat Clearance w eGFR POC Glucometer 144 126 Random Glucose Calcium Phosphorus Magnesium Creatine Kinase Creatine Kinase Index CK-MB (CK-2) Urine Color Urine Appearance Urine pH Ur Specific [place] Urine Protein Urine Glucose (UA) Urine Ketones Urine Blood Urine Nitrite Urine Bilirubin Urine Urobilinogen Ur Leukocyte Esterase Urine WBC (Auto) Urine RBC (Auto) Urine Casts (Auto) U Epithel Cells (Auto) Urine Bacteria (Auto) Urine Osmolality Ur Random Sodium 03/02/19 03/02/19 03/02/19 08:04 08:04 08:04 WBC RBC Hgb Hct MCV MCH MCHC RDW Plt Count MPV Sodium 138 Potassium 3.7 Chloride 103 Carbon Dioxide 27 Anion Gap 8 BUN 9 Creatinine 0.9 Creat Clearance w eGFR 61.38 POC Glucometer Random Glucose 136 H Calcium 8.7 Phosphorus 3.2 Magnesium 2.3 Creatine Kinase 2842 H Creatine Kinase Index 0.5 CK-MB (CK-2) 14.3 H 14.3 H Urine Color Urine Appearance Urine pH Ur Specific [place] Urine Protein Urine Glucose (UA) Urine Ketones Urine Blood Urine Nitrite Urine Bilirubin Urine Urobilinogen Ur Leukocyte Esterase Urine WBC (Auto) Urine RBC (Auto) Urine Casts (Auto) U Epithel Cells (Auto) Urine Bacteria (Auto) Urine Osmolality Ur Random Sodium ASSESSMENT AND PLAN: Severe Hyponatremia improving Altered Mental Status improving Lactic Acidosis HTN Hyperlipidemia Dementia - fluid restriction per Renal - monitor sodium level - PO as tolerated - DVT prophylaxis Dr Mosqueda
[2019-03-02 12:15] LABS: SGOT/AST 89 U/L (15-37); SGPT/ALT 57 U/L (13-61)
--- NOTE | 2019-03-02 12:52 | PN ---
Teaching Attending Note Name of Resident: Adelaida Trujillo ATTENDING PHYSICIAN STATEMENT I saw and evaluated the patient. I reviewed the resident's note and discussed the case with the resident. I agree with the resident's findings and plan as documented. SUBJECTIVE: Feels great - no complaints. No myalgia/hematuria. No confusion/ headache/visual disturbance/limb numbness/tingling. OBJECTIVE: Afebrile, Hemodynamically Stable. Last Vital Signs Temp Pulse Resp BP Pulse Ox 98.6 F 76 18 151/81 96 03/02/19 10:00 03/02/19 10:00 03/02/19 10:00 03/02/19 10:03/02/19 09:00 HEENT - Atraumatic, Normocephalic Heart - S1, S2, SM Lungs - clear to auscultation, no crackles/wheeze Abdomen - soft, non-tender. Bowel Sounds normal. Extremities - no edema, no calf tenderness. Neuro - AAO x 3. Tone/Power normal all 4 extremities Laboratory Results - last 24 hr 03/01/19 03/01/19 03/01/19 16:38 16:40 16:40 WBC RBC Hgb Hct MCV MCH MCHC RDW Plt Count MPV Sodium Potassium Chloride Carbon Dioxide Anion Gap BUN Creatinine Creat Clearance w eGFR POC Glucometer 128 Random Glucose Calcium Phosphorus Magnesium AST ALT Creatine Kinase Creatine Kinase Index CK-MB (CK-2) Urine Color Urine Appearance Urine pH Ur Specific [place] Urine Protein Urine Glucose (UA) Urine Ketones Urine Blood Urine Nitrite Urine Bilirubin Urine Urobilinogen Ur Leukocyte Esterase Urine WBC (Auto) Urine RBC (Auto) Urine Casts (Auto) U Epithel Cells (Auto) Urine Bacteria (Auto) Urine Osmolality 257 L Ur Random Sodium 41 03/01/19 03/01/19 03/01/19 16:40 17:10 23:09 WBC RBC Hgb Hct MCV MCH MCHC RDW Plt Count MPV Sodium 139 Potassium 3.9 Chloride 103 Carbon Dioxide 29 Anion Gap 7 L BUN 8 Creatinine 0.8 Creat Clearance w eGFR 70.31 POC Glucometer 144 Random Glucose 117 H Calcium 8.9 Phosphorus Magnesium AST ALT Creatine Kinase Creatine Kinase Index CK-MB (CK-2) Urine Color Yellow Urine Appearance Cloudy Urine pH 5.5 Ur Specific [place] 1.008 L Urine Protein Negative Urine Glucose (UA) Negative Urine Ketones Negative Urine Blood 2+ H Urine Nitrite Negative Urine Bilirubin Negative Urine Urobilinogen 0.2 Ur Leukocyte Esterase 1+ H Urine WBC (Auto) 12 Urine RBC (Auto) 15 Urine Casts (Auto) 1 U Epithel Cells (Auto) 1.6 Urine Bacteria (Auto) 2.9 Urine Osmolality Ur Random Sodium 03/02/19 03/02/19 03/02/19 06:47 08:04 08:04 WBC 8.5 RBC 4.64 Hgb 12.3 Hct 37.3 MCV 80.2 MCH 26.6 MCHC 33.1 RDW 14.1 Plt Count 301 MPV 8.0 Sodium 138 Potassium 3.7 Chloride 103 Carbon Dioxide 27 Anion Gap 8 BUN 9 Creatinine 0.9 Creat Clearance w eGFR 61.38 POC Glucometer 126 Random Glucose 136 H Calcium 8.7 Phosphorus 3.2 Magnesium 2.3 AST 89 H ALT 57 Creatine Kinase Creatine Kinase Index CK-MB (CK-2) Urine Color Urine Appearance Urine pH Ur Specific [place] Urine Protein Urine Glucose (UA) Urine Ketones Urine Blood Urine Nitrite Urine Bilirubin Urine Urobilinogen Ur Leukocyte Esterase Urine WBC (Auto) Urine RBC (Auto) Urine Casts (Auto) U Epithel Cells (Auto) Urine Bacteria (Auto) Urine Osmolality Ur Random Sodium 03/02/19 03/02/19 03/02/19 08:04 08:04 11:15 WBC RBC Hgb Hct MCV MCH MCHC RDW Plt Count MPV Sodium Potassium Chloride Carbon Dioxide Anion Gap BUN Creatinine Creat Clearance w eGFR POC Glucometer 110 Random Glucose Calcium Phosphorus Magnesium AST ALT Creatine Kinase 2842 H Creatine Kinase Index 0.5 CK-MB (CK-2) 14.3 H 14.3 H Urine Color Urine Appearance Urine pH Ur Specific [place] Urine Protein Urine Glucose (UA) Urine Ketones Urine Blood Urine Nitrite Urine Bilirubin Urine Urobilinogen Ur Leukocyte Esterase Urine WBC (Auto) Urine RBC (Auto) Urine Casts (Auto) U Epithel Cells (Auto) Urine Bacteria (Auto) Urine Osmolality Ur Random Sodium Current Medications Generic Name Dose Route Start Last Admin Trade Name Freq PRN Reason Stop Dose Admin Diltiazem HCl 180 mg 03/01/19 10:00 03/02/19 10:32 Cardizem Cd - PO 180 mg DAILY DULCE Administration Donepezil HCl 5 mg 03/02/19 22:00 Aricept - PO HS DULCE Enoxaparin Sodium 40 mg 03/01/19 10:00 03/02/19 10:31 Lovenox - SQ 40 mg DAILY DULCE Administration Lisinopril 10 mg 03/02/19 10:00 03/02/19 10:31 Prinivil PO 10 mg DAILY DULCE Administration Ondansetron HCl 4 mg 02/28/19 22:44 Zofran Injection IVPUSH Q6H PRN NAUSEA Pantoprazole Sodium 40 mg 03/02/19 10:00 03/02/19 10:31 Protonix - PO 40 mg DAILY DULCE Administration ASSESSMENT AND PLAN: 73 year old Female with history of HTN, HLD, Mild Dementia presented with AMS and was found to have Hyponatremia. 1. Acute Metabolic Encephalopathy secondary to Hyponatremia - resolved. Urinary Na 41 ? SIADH/HCTZ Repeat Na 138, up from 117 HCTZ held, Fluid restrcition 1.5L Nephrology following No masses on CT Chest. 2. Acute Rhabdomyolysis ? secondary to Statin Statin held. CPK improving 3485 ---> 2842 Oral fluid intake encouraged. Will monitor CPK and renal function. 3. L ovarian cyst on CT scan (incidental finding), asymptomatic, for out- patient US and DATA MINING ANALYST eval. 4. Distal Esophageal Wall thickening (incidental finding on CT Chest) - asymptomatic, for outpatient GI referral for further work-up. On PPI. 5. Heterogenoud Thyroid (incidental finding on CT Chest) - adsymptomatic, for out-patient US 6. HTN - Continue Cardizem. Lisinopril continued without HCTZ. 7. Elevated AST ? related to Statin. No hepatic abnormality on CT Abdomen - for outpatient recheck LFTs in 3 weeks after stopping statin and further work-up with abdominal US at that time if necessary. DVT Px - Lovenox SQ
--- NOTE | 2019-03-02 16:04 | PN ---
Progress Note (short form) - Note Progress Note: Renal follow up for Hyponatremia Pt seen and examined at the bedside awake and alert, offers no acute complaints no DIAMOND, confusion, lethargy, weakness, seizures Vital Signs Temperature 98.5 F 03/02/19 13:53 Pulse Rate 70 03/02/19 13:53 Respiratory Rate 20 03/02/19 13:53 Blood Pressure 147/64 03/02/19 13:53 O2 Sat by Pulse Oximetry (%) 96 03/02/19 09:00 Intake & Output 02/27/19 02/28/19 03/01/19 03/02/19 23:59 23:59 23:59 23:59 Intake Total 1375 324 875 650 Output Total 2200 2100 Balance -825 -1776 875 650 Weight 48.398 kg 46.437 kg 48.081 kg 49.952 kg NAD MMM RRR, no M/R CTA soft NT/ND no LE edema, clubbing or cyanosis CBC, BMP 03/02/19 08:04 03/02/19 08:04 Current Medications Diltiazem HCl (Cardizem Cd -) 180 mg PO DAILY [facility] Last Admin: 03/02/19 10:32 Dose: 180 mg Donepezil HCl (Aricept -) 5 mg PO HS [facility]1983 Enoxaparin Sodium (Lovenox -) 40 mg SQ DAILY [facility] Last Admin: 03/02/19 10:31 Dose: 40 mg Lisinopril (Prinivil) 10 mg PO DAILY [facility] Last Admin: 03/02/19 10:31 Dose: 10 mg Ondansetron HCl (Zofran Injection) 4 mg IVPUSH Q6H PRN PRN Reason: NAUSEA Pantoprazole Sodium (Protonix -) 40 mg PO DAILY [facility] Last Admin: 03/02/19 10:31 Dose: 40 mg 73 year old woman with hx of Hypertension, Hyperlipidemia and Dementia who presented from home with AMS and Nausea with hyponatremia with serum sodium of 118 #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) #Altered Mental status #Hypertension #Lactic acidosis #Hyperlipidemia #Rhabdomyolysis Serum Na stable off hypertonic fluids can discontinue fluid restriction maintain off HCTZ going forward CK's now downtrending, oral hydration as tolerated Trend electrolytes daily Walter Yates DO
[2019-03-02] MEDS ORDERED: DONEPEZIL HCL 5 MG TABLET (FP) PO SCH (22:00)
[2019-03-03 08:21] LABS: MCH 26.4 pg (25.7-33.7); MCHC 33.3 g/dl (32.0-36.0); MEAN CELL VOLUME 79.1 fl (80-96); MEAN PLT VOLUME 8.1 fl (7.5-11.1); PLATELET COUNT 325 K/MM3 (134-434); RBC 4.55 M/mm3 (3.60-5.2); RDW 14.7 % (11.6-15.6); WHITE BLOOD COUNT 7.9 K/mm3 (4.0-10.0)
[2019-03-03 08:53] VITALS: BP 165/74; PULSE 63; TEMP 98
[2019-03-03 09:03] LABS: ALBUMIN 3.4 g/dl (3.4-5.0); ALK PHOS 93 U/L (45-117); ANION GAP 9 MMOL/L (8-16); BLOOD UREA NITROGEN 10 mg/dL (7-18); CHLORIDE 104 mmol/L (98-107); CO2 28 mmol/L (21-32); CREATININE 0.8 mg/dL (0.55-1.3); GLUCOSE,RANDOM 102 mg/dL (74-106); MAGNESIUM 2.4 mg/dL (1.8-2.4); PHOSPHOROUS 4.2 mg/dL (2.5-4.9); POTASSIUM 4.3 mmol/L (3.5-5.1); SGOT/AST 68 U/L (15-37); SGPT/ALT 58 U/L (13-61); SODIUM 141 mmol/L (136-145); TOT PROT 6.7 g/dl (6.4-8.2)
[2019-03-03] MEDS ORDERED: PT OWN MED DRAWER 7, Y5N ONE (09:55)
[2019-03-03] MEDS: ENOXAPARIN NA (PORCINE) 40 MG/0.4 ML DISP.SYRIN SQ SCH (09:56)
[2019-03-03] MEDS: PANTOPRAZOLE 40 MG TABLET (FP) PO SCH (09:56)
[2019-03-03] MEDS: LISINOPRIL 10 MG TABLET (FP) PO SCH (09:56)
--- NOTE | 2019-03-03 10:14 | PN ---
Physical Exam: SUBJECTIVE: Patient seen and examined at bedside- no acute events overnight; patient seems slightly more confused today she knows her name but thought she was at home and did not know the month/year; as per nurses last night she was wondering down the halls getting dresses in her regular clothing as she thought she was leaving; she denies any CP/SOB/N/V OBJECTIVE: Vital Signs Period Temp Pulse Resp BP Sys/Norris Pulse Ox Last 24 Hr 98.0 F-98.8 F 60-70 18-20 147-165/64-79 GENERAL: The patient is awake, alert, oriented times 1-2 in no acute distress. EYES: PEERLA: EOMI no scleral icterus NECK: no JVD; no lymphadenopathy LUNGS: CTA B/L; no rales, rhonchi or wheezing HEART: Regular rate and rhythm, S1, S2 without murmur, rub or gallop. ABDOMEN: Soft, nontender, nondistended, normoactive bowel sounds, no guarding, no rebound, no hepatosplenomegaly, no masses. EXTREMITIES: 2+ pulses, warm, well-perfused, no edema. PSYCH: Normal mood, normal affect. SKIN: Warm, dry, normal turgor, no rashes or lesions noted Laboratory Results - last 24 hr 03/02/19 03/02/19 03/02/19 08:04 11:15 16:39 WBC RBC Hgb Hct MCV MCH MCHC RDW Plt Count MPV Sodium 138 Potassium 3.7 Chloride 103 Carbon Dioxide 27 Anion Gap 8 BUN 9 Creatinine 0.9 Creat Clearance w eGFR 61.38 POC Glucometer 110 146 Random Glucose 136 H Calcium 8.7 Phosphorus 3.2 Magnesium 2.3 Total Bilirubin AST 89 H ALT 57 Alkaline Phosphatase Creatine Kinase Creatine Kinase Index CK-MB (CK-2) Total Protein Albumin 03/02/19 03/03/19 03/03/19 21:49 06:05 06:25 WBC 7.9 RBC 4.55 Hgb 12.0 Hct 36.0 MCV 79.1 L MCH 26.4 MCHC 33.3 RDW 14.7 Plt Count 325 MPV 8.1 Sodium Potassium Chloride Carbon Dioxide Anion Gap BUN Creatinine Creat Clearance w eGFR POC Glucometer 106 91 Random Glucose Calcium Phosphorus Magnesium Total Bilirubin AST ALT Alkaline Phosphatase Creatine Kinase Creatine Kinase Index CK-MB (CK-2) Total Protein Albumin 03/03/19 03/03/19 06:25 06:25 WBC RBC Hgb Hct MCV MCH MCHC RDW Plt Count MPV Sodium 141 Potassium 4.3 Chloride 104 Carbon Dioxide 28 Anion Gap 9 BUN 10 Creatinine 0.8 Creat Clearance w eGFR 70.31 POC Glucometer Random Glucose 102 Calcium 9.0 Phosphorus 4.2 Magnesium 2.4 Total Bilirubin 1.0 AST 68 H ALT 58 Alkaline Phosphatase 93 Creatine Kinase 1928 H Creatine Kinase Index 0.4 CK-MB (CK-2) 8.5 H 8.5 H Total Protein 6.7 Albumin 3.4 Active Medications Generic Name Dose Route Start Last Admin Trade Name Freq PRN Reason Stop Dose Admin Diltiazem HCl 180 mg 03/01/19 10:00 03/03/19 09:56 Cardizem Cd - PO 180 mg DAILY DULCE Administration Donepezil HCl 5 mg 03/02/19 22:00 03/02/19 21:38 Aricept - PO 5 mg HS DULCE Administration Enoxaparin Sodium 40 mg 03/01/19 10:00 03/03/19 09:56 Lovenox - SQ 40 mg DAILY DULCE Administration Lisinopril 10 mg 03/02/19 10:00 03/03/19 09:56 Prinivil PO 10 mg DAILY DULCE Administration Ondansetron HCl 4 mg 02/28/19 22:44 Zofran Injection IVPUSH Q6H PRN NAUSEA Pantoprazole Sodium 40 mg 03/02/19 10:00 03/03/19 09:56 Protonix - PO 40 mg DAILY DULCE Administration ASSESSMENT/PLAN: 73 y/o female with PMH of HTN, HLD, dementia was brought into the ED from home by her son after she was found to have nausea, vomiting, AMS and was found to be hyponatremic to 117 on admission. 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 (likely 2/2 HCTZ use) -nephro on board -most recent sodium was 141 this AM -c/w fluid restriction to 1.5L #HTN -holding HCTZ -cardizem 180 daily -added lisinopril 20mg daily since her BP was elevated overnight #HLD holding statin for now given elevated CK level repeat CK trending down: 1927 this AM from 2842 yesterday #Dementia restart aricept DVT PPX: lovenox 40 SQ GI PPX: protonix F/E/N not on fluids regular diet Problem List - Problems (1) Altered mental state Code(s): R41.82 - ALTERED MENTAL STATUS, UNSPECIFIED Qualifiers: Altered mental status type: disorientation Qualified Code(s): R41.0 - Disorientation, unspecified (2) Dementia Code(s): F03.90 - UNSPECIFIED DEMENTIA WITHOUT BEHAVIORAL DISTURBANCE (3) HLD (hyperlipidemia) Code(s): E78.5 - HYPERLIPIDEMIA, UNSPECIFIED Qualifiers: Hyperlipidemia type: unspecified Qualified Code(s): E78.5 - Hyperlipidemia , unspecified (4) HTN (hypertension) Code(s): I10 - ESSENTIAL (PRIMARY) HYPERTENSION Qualifiers: Hypertension type: essential hypertension Qualified Code(s): I10 - Essential (primary) hypertension (5) Hyponatremia Code(s): E87.1 - HYPO-OSMOLALITY AND HYPONATREMIA
--- NOTE | 2019-03-03 13:44 | PN ---
Progress Note (short form) - Note Progress Note: Renal follow up for Hyponatremia Pt seen and examined at the bedside awake and alert no acute complaints tolerating oral diet well no sob, cp, DIAMOND Vital Signs Temperature 98.0 F 03/03/19 08:52 Pulse Rate 63 03/03/19 08:52 Respiratory Rate 18 03/03/19 08:52 Blood Pressure 165/74 03/03/19 08:52 O2 Sat by Pulse Oximetry (%) 96 03/02/19 09:00 Intake & Output 02/28/19 03/01/19 03/02/19 03/03/19 23:59 23:59 23:59 23:59 Intake Total 324 875 920 Output Total 2100 Balance -1776 875 920 Weight 46.437 kg 48.081 kg 49.952 kg 48.988 kg NAD MMM RRR, no M/R CTA soft NT/ND no LE edema, clubbing or cyanosis CBC, BMP 03/03/19 06:25 03/03/19 06:25 Current Medications Diltiazem HCl (Cardizem Cd -) 180 mg PO DAILY [facility] Last Admin: 03/03/19 09:56 Dose: 180 mg Donepezil HCl (Aricept -) 5 mg PO HS [facility] Last Admin: 03/02/19 21:38 Dose: 5 mg Enoxaparin Sodium (Lovenox -) 40 mg SQ DAILY [facility] Last Admin: 03/03/19 09:56 Dose: 40 mg Lisinopril (Prinivil) 10 mg PO DAILY [facility] Last Admin: 03/03/19 09:56 Dose: 10 mg Ondansetron HCl (Zofran Injection) 4 mg IVPUSH Q6H PRN PRN Reason: NAUSEA Pantoprazole Sodium (Protonix -) 40 mg PO DAILY [facility] Last Admin: 03/03/19 09:56 Dose: 40 mg 73 year old woman with hx of Hypertension, Hyperlipidemia and Dementia who presented from home with AMS and Nausea with hyponatremia with serum sodium of 118 #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
--- NOTE | 2019-03-03 14:00 | PN ---
Teaching Attending Note Name of Resident: Adelaida Trujillo ATTENDING PHYSICIAN STATEMENT I saw and evaluated the patient. I reviewed the resident's note and discussed the case with the resident. I agree with the resident's findings and plan as documented. SUBJECTIVE: no pain or SOB. no complaints OBJECTIVE: NAD, awake, alert CV: RRR, 3/6 SM at RUSb with radiation to carotids and 3/6 SM At apex with radiation to L axilla Lungs: CTAB Ext : no edema . ASSESSMENT AND PLAN: 73 y/o lady with h/o HTN, HL, dementia who presented with AMS and was found to have hyponatremia . 1- Hyponatremia: SIADH and HCTZ use CT if chest reviewed no masses in lungs but thyrpid nodule cont fluid restriction . no HCTZ at dc f/u with blood work and fo continued w/u for SIADH 2- Elevated CPK: no clear etiology.improving . cont to hold statin at dc 3- Lactic acidosis : resolved. off Abx . 4- AMS : metabolic encephalopathy. resolved. 5- L ovarian cyst on CT scan: f/u as out pt with US and [employer] eval 6- Thickened esophagus on CT scan. follo wup with GI as out pt for EGD 7- thyroid nodule . US and full w/u as out pt dispo : dc home
--- NOTE | 2019-03-03 14:14 | DS ---
Physical Exam: SUBJECTIVE: Patient seen and examinedPatient seen and examined at bedside- no acute events overnight; patient seems slightly more confused today she knows her name but thought she was at home and did not know the month/year; as per nurses last night she was wondering down the halls getting dresses in her regular clothing as she thought she was leaving; she denies any CP/SOB/N/V OBJECTIVE: Vital Signs Period Temp Pulse Resp BP Sys/Norris Pulse Ox Last 24 Hr 98.0 F-98.8 F 60-63 18-20 156-165/74-79 PHYSICAL EXAM GENERAL: The patient is awake, alert, oriented times 1-2 in no acute distress. EYES: PEERLA: EOMI no scleral icterus NECK: no JVD; no lymphadenopathy LUNGS: CTA B/L; no rales, rhonchi or wheezing HEART: Regular rate and rhythm, S1, S2 without murmur, rub or gallop. ABDOMEN: Soft, nontender, nondistended, normoactive bowel sounds, no guarding, no rebound, no hepatosplenomegaly, no masses. EXTREMITIES: 2+ pulses, warm, well-perfused, no edema. PSYCH: Normal mood, normal affect. SKIN: Warm, dry, normal turgor, no rashes or lesions noted LABS Laboratory Results - last 24 hr 03/02/19 03/02/19 03/03/19 16:39 21:49 06:05 WBC RBC Hgb Hct MCV MCH MCHC RDW Plt Count MPV Sodium Potassium Chloride Carbon Dioxide Anion Gap BUN Creatinine Creat Clearance w eGFR POC Glucometer 146 106 91 Random Glucose Calcium Phosphorus Magnesium Total Bilirubin AST ALT Alkaline Phosphatase Creatine Kinase Creatine Kinase Index CK-MB (CK-2) Total Protein Albumin 03/03/19 03/03/19 03/03/19 06:25 06:25 06:25 WBC 7.9 RBC 4.55 Hgb 12.0 Hct 36.0 MCV 79.1 L MCH 26.4 MCHC 33.3 RDW 14.7 Plt Count 325 MPV 8.1 Sodium 141 Potassium 4.3 Chloride 104 Carbon Dioxide 28 Anion Gap 9 BUN 10 Creatinine 0.8 Creat Clearance w eGFR 70.31 POC Glucometer Random Glucose 102 Calcium 9.0 Phosphorus 4.2 Magnesium 2.4 Total Bilirubin 1.0 AST 68 H ALT 58 Alkaline Phosphatase 93 Creatine Kinase 1928 H Creatine Kinase Index 0.4 CK-MB (CK-2) 8.5 H 8.5 H Total Protein 6.7 Albumin 3.4 HOSPITAL COURSE: Date of Admission:02/27/19 Patient is a 73 year old female was brought in to the ED from home by her son after she was found to have vomiting and confusion. As per the patients son, his daughter (11 year old) called him at work around 9pm last night and mentioned her grand mother has been having nausea, vomiting and is more confused. Patient's son reached home after half an hour and found patient vomiting-4 episodes, non bloody, non bilious, containing food particles, she was complaining of nausea, abdominal pain, chest pain and shortness of breath. Temperature at home was 96.2 F twice. He gave her Gasex and water but she couldn 't tolerate. Hence brought in to the ED for further evaluation. Patient has a h/o dementia, has short term memory loss since 1-2 years, saw Dr. Ramirez last week and was started on Donepezil. She was also seen by her primary physician last week and dose of Cardizem was increased from 120-180 mg and Lisinopril/HCTZ was added x 3 days ago. Bowel/Bladder habit normal. Sleep/Appetite normal. Drinks about 1 L of water/day. On arrival to the ED, patient was afebrile, labs significant for hyponatremia Na of 119, K-3.3, Lactic acid 5.7. Was given 2 L of IV Normal Saline, Zofran in the ED then brought in to the ICU for further management. As per ED physician they did a bedside ultrasound, found collapsable IVC. Was given 2L of Normal Saline. Upon assessment in ICU, patient is confused (difficult to assess as patient has baseline dementia), as per son who is at bed side, she is more confused. Patient is still nauseaous. Denies headache, blurring of vision, tingling, numbness, any focal neurological deficits, chest pain, shortness of breath, palpitations, abdominal pain. head CT was negative- pateint was given DDAVP she was put in ICU- her BMP was monitored every few hours ; hr HCTZ was discontinued. she was seen by nephro; who d/c' the DDAVP her asoidum and mental status improved. her CK and liver enzymes were elevated liekly 2/2 statin use- her CK was trended and they downtrnded she was taken off the statin. her mental status iumporved and she was d/c home with nbephro follow up and to repeat her labs rachin one week at her pcp Date of Discharge: 03/03/19 Minutes to complete discharge: 39 Discharge Summary Reason For Visit: HYPOATREMIA/HYPOVOLEMIA Current Active Problems Dementia (Chronic) HLD (hyperlipidemia) (Chronic) HTN (hypertension) (Chronic) Condition: Improved - Instructions Diet, Activity, Other Instructions: You came to the emergency room with complaints of nausea/vomiting and some confusion. Your sodium level was found to be very low likely caused by your blood pressure pill, Hydrochlorthiazide. We stopped your blood pressure pill, restricted your fluid intake and your sodium level returned to normal and your symptoms improved. you might have a condition called SIADH ( you need continued work up after discharge. by Dr. Yates) Please resume all of your home medications EXCEPT: -please do not take the blood pressure pill HCTZ/Lisinopril -please do not take your cholesterol medication, Lipitor, as your muscle breakdown enzymes and liver enzymes were elevated, until you follow with your primary care doctor and blood work improves -We started you on another medication for your blood pressure, Lisinopril 20mg to be taken daily Please follow up with Dr. Carballo, within one week and have your basic metabolic panel, CPK, and liver enzymes repeated Please follow up with Dr Yates, the transcribing machine operator within one week We are referring you to a boiler repair supervisor, Dr. 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 to have an ultrasound done as you were found to have a left ovarian cyst You were also found to have a questionable nodule on your thyroid that will need to be assessed with ultrasound *if you begin to experience worsening changes in mental status, chest pains, shortness of breath, nausea/vomiting please return to the emergency room immediately Referrals: Yvette Carballo [Other] - 1 Week Indu Vogt DO [Staff Physician] - 1 Week Walter Yaets MD [Staff Physician] - 1 Week Disposition: HOME - Home Medications Comprehensive Discharge Medication List: Ambulatory Orders Diltiazem HCl [Diltiazem 24Hr Cd] 180 mg PO DAILY 02/27/19 Donepezil HCl [Aricept -] 5 mg PO DAILY 02/27/19 Lisinopril [Prinivil] 20 mg PO DAILY #30 tablet 03/03/19 Miscellaneous Medical Supply [Outpatient Order] 1 each ASDIR #1 misc Problem List - Problems (1) Altered mental state Code(s): R41.82 - ALTERED MENTAL STATUS, UNSPECIFIED Qualifiers: Altered mental status type: disorientation Qualified Code(s): R41.0 - Disorientation, unspecified (2) Dementia Code(s): F03.90 - UNSPECIFIED DEMENTIA WITHOUT BEHAVIORAL DISTURBANCE (3) HLD (hyperlipidemia) Code(s): E78.5 - HYPERLIPIDEMIA, UNSPECIFIED Qualifiers: Hyperlipidemia type: unspecified Qualified Code(s): E78.5 - Hyperlipidemia , unspecified (4) HTN (hypertension) Code(s): I10 - ESSENTIAL (PRIMARY) HYPERTENSION Qualifiers: Hypertension type: essential hypertension Qualified Code(s): I10 - Essential (primary) hypertension (5) Hyponatremia Code(s): E87.1 - HYPO-OSMOLALITY AND HYPONATREMIA This patient is new to me today: No Emergency Visit: Yes ED Registration Date: 02/27/19 Care time: The patient presented to the Emergency Department on the above date and was hospitalized for further evaluation of their emergent condition. Critical Care patient: No - Discharge Referral Referred to [facility] Med P.C.: No
== END 2019-03-03 16:00 | disposition home or self-care (01) | DRG 643 ==
LOC: JER 00:53 → JERBED 03:24 → JICU 04:37 → J6S 02-28 20:12
PROVIDERS: ADMIT Internal Medicine; ATTEND Internal Medicine
DX: E22.2 Syndrome of inappropriate secretion of antidiuretic hormone (principal); G93.41 Metabolic encephalopathy; M62.82 Rhabdomyolysis; I16.1 Hypertensive emergency; E87.2 Acidosis; F03.90 Unspecified dementia, unspecified severity, without behavioral disturbance, psychotic disturbance, mood disturbance, and anxiety; I10 Essential (primary) hypertension; E78.5 Hyperlipidemia, unspecified; E87.6 Hypokalemia; R11.0 Nausea; E86.1 Hypovolemia; E83.39 Other disorders of phosphorus metabolism; E83.42 Hypomagnesemia; R41.82 Altered mental status, unspecified; N83.292 Other ovarian cyst, left side; E04.1 Nontoxic single thyroid nodule
CPT/HCPCS: 36415; 70450-TC; 71045-TC-FY; 71250-TC; 74177-TC; 80048; 80053; 81003; 82248; 82436; 82550; 82553; 82570; 82803; 82962; 83036; 83605; 83690; 83735; 83880; 83930; 83935; 84100; 84133; 84300; 84439; 84443; 84450; 84460; 84484; 85025; 85027; 85610; 85730; 87040; 87086; 87804; 93005; 93010; 97116-GP; 97161-GP; 99284-25; J2597; J7030

== ENCOUNTER 2023-11-15 10:53 | Emergency (ER) | payer MEDICARE, OTHER ==
[2023-11-15 11:00] VITALS: BP 155/77; RESP 18; TEMP 99.1; BMI 23.4
[2023-11-15 12:54] VITALS: PULSE 82
== END 2023-11-15 13:09 | disposition home or self-care (01) ==
LOC: JERFT 10:53
DX: R21 Rash and other nonspecific skin eruption (principal); B02.9 Zoster without complications
CPT/HCPCS: 99282-25

== ENCOUNTER 2024-02-26 04:02 | Observation (INO) | payer OTHER ==
[2024-02-26 04:17] VITALS: BMI 21.4
[2024-02-26] MEDS ORDERED: ACETAMINOPHEN INJECTION 100 ML IVPB ONE (04:41)
[2024-02-26] MEDS ORDERED: METOCLOPRAMIDE HCL INJECTION 10 MG/2 ML VIAL ONE (04:41)
[2024-02-26] MEDS: SODIUM CHLORIDE 0.9% 500 ML INFUS.BAG IV ONE (04:49)
[2024-02-26] MEDS: ACETAMINOPHEN 1000 MG/100 ML BAG IVPB ONE (04:50)
[2024-02-26] MEDS: METOCLOPRAMIDE HCL INJECTION 10 MG/2 ML VIAL IVPB ONE (04:50)
[2024-02-26 05:18] LABS: BASO % 0.9 % (0-2.0); EOS % 0.6 % (0-4.5); HEMATOCRIT 34.6 % (32.4-45.2); HEMOGLOBIN 11.4 GM/dL (10.7-15.3); LYMPH % 24.7 % (8-40); MCH 26.3 pg (25.7-33.7); MCHC 33.1 g/dl (32.0-36.0); MEAN CELL VOLUME 79.7 fl (80-96); MEAN PLT VOLUME 7.9 fl (7.5-11.1); MONO % 11.8 % (3.8-10.2); PLATELET COUNT 259 10^3/uL (134-434); RBC 4.34 M/mm3 (3.60-5.2); RDW 14.7 % (11.6-15.6); WHITE BLOOD COUNT 5.8 K/mm3 (4.0-10.0)
[2024-02-26 05:26] LABS: POTASSIUM 3.6 mmol/L (3.5-5.1)
[2024-02-26 05:29] LABS: ALBUMIN 3.2 g/dl (3.4-5.0); BLOOD UREA NITROGEN 20.4 mg/dL (7-18); CALCIUM 8.9 mg/dL (8.5-10.1); MAGNESIUM 1.9 mg/dL (1.8-2.4)
[2024-02-26 05:31] LABS: INR 1.04 (0.83-1.09); PROTHROMBIN TIME (PATIENT) 12.1 SEC (9.7-13.0)
[2024-02-26 05:32] LABS: CREATININE 0.9 mg/dL (0.55-1.3)
[2024-02-26 05:34] LABS: ACTIVATED PTT 30.9 SECONDS (25.2-36.5); BILIRUBIN,TOTAL 0.7 mg/dL (0.2-1); TOT PROT 7.1 g/dl (6.4-8.2)
[2024-02-26] MEDS ORDERED: MECLIZINE HCL 25 MG TABLET (FP) ONE (06:50)
[2024-02-26] MEDS: MECLIZINE HCL 25 MG TABLET (FP) PO ONE (06:52)
[2024-02-26 08:18] LABS: URINE APPEARANCE CLEAR; URINE BILIRUBIN NEGATIVE (NEGATIVE); URINE COLOR YELLOW; URINE GLUCOSE (UA) NEGATIVE (NEGATIVE); URINE KETONE NEGATIVE (NEGATIVE); URINE LEUK ESTERASE NEGATIVE (NEGATIVE); URINE NITRITE NEGATIVE (NEGATIVE); URINE PROTEIN NEGATIVE (NEGATIVE); URINE UROBILINOGEN 0.2 mg/dL (0.2-1.0)
[2024-02-26] MEDS ORDERED: MECLIZINE HCL 12.5 MG TABLET PO PRN (09:36)
[2024-02-26] MEDS ORDERED: hydrALAZINE HCL 20 MG/ML VIAL IVPUSH PRN (09:39)
[2024-02-26] MEDS ORDERED: dilTIAZem HCL 60 MG TABLET ONE (10:34)
[2024-02-26] MEDS ORDERED: LISINOPRIL 20 MG TABLET ONE (10:34)
[2024-02-26] MEDS: LISINOPRIL 20 MG TABLET PO SCH (10:46)
[2024-02-26] MEDS: MECLIZINE HCL 12.5 MG TABLET PO ONE (10:47)
[2024-02-26] MEDS ORDERED: HEPARIN NA (PORCINE) 5,000 UNITS/ML 1ML VIAL ONE (10:47)
[2024-02-26] MEDS: HEPARIN NA (PORCINE) 5,000 UNITS/ML 1ML VIAL SQ SCH (10:55)
[2024-02-26] MEDS: hydrALAZINE HCL 20 MG/ML VIAL IVPUSH ONE ×2 (11:26→22:42)
[2024-02-26] MEDS ORDERED: risperiDONE 0.25 MG TABLET PO PRN (15:50)
[2024-02-26] MEDS: LISINOPRIL 10 MG TABLET PO ONE (18:43)
[2024-02-26] MEDS: hydrALAZINE HCL 10 MG TABLET PO ONE (22:42)
[2024-02-27 09:52] LABS: HEMATOCRIT 37.6 % (32.4-45.2); HEMOGLOBIN 12.4 GM/dL (10.7-15.3); MCH 26.4 pg (25.7-33.7); MCHC 33.1 g/dl (32.0-36.0); MEAN CELL VOLUME 79.8 fl (80-96); MEAN PLT VOLUME 8.1 fl (7.5-11.1); PLATELET COUNT 280 10^3/uL (134-434); RBC 4.72 M/mm3 (3.60-5.2); RDW 14.6 % (11.6-15.6); WHITE BLOOD COUNT 5.8 K/mm3 (4.0-10.0)
[2024-02-27 10:06] LABS: POTASSIUM 3.6 mmol/L (3.5-5.1)
[2024-02-27 10:10] LABS: CALCIUM 9.7 mg/dL (8.5-10.1)
[2024-02-27 10:11] LABS: BLOOD UREA NITROGEN 9.7 mg/dL (7-18)
[2024-02-27 10:14] LABS: ALBUMIN 3.6 g/dl (3.4-5.0); CREATININE 0.9 mg/dL (0.55-1.3)
[2024-02-27 10:16] LABS: TOT PROT 7.8 g/dl (6.4-8.2)
[2024-02-27 10:40] LABS: BILIRUBIN,TOTAL 1.5 mg/dL (0.2-1)
[2024-02-27 18:38] VITALS: RESP 18
[2024-02-27] MEDS: LABETALOL HCL 5 MG/1 ML (100MG/20 ML VIAL) IVPUSH ONE (19:36)
[2024-02-27] MEDS: hydrALAZINE HCL 10 MG TABLET PO ONE (20:11)
[2024-02-27] MEDS: HEPARIN NA (PORCINE) 5,000 UNITS/ML 1ML VIAL SQ SCH (21:19)
[2024-02-27] MEDS: risperiDONE 0.25 MG TABLET PO PRN (21:19)
[2024-02-28 09:59] LABS: HEMATOCRIT 37.1 % (32.4-45.2); MCHC 32.4 g/dl (32.0-36.0); MEAN CELL VOLUME 80.4 fl (80-96); MEAN PLT VOLUME 8.1 fl (7.5-11.1); PLATELET COUNT 279 10^3/uL (134-434); RBC 4.61 M/mm3 (3.60-5.2); RDW 14.8 % (11.6-15.6); WHITE BLOOD COUNT 5.3 K/mm3 (4.0-10.0)
[2024-02-28 10:19] LABS: POTASSIUM 3.8 mmol/L (3.5-5.1)
[2024-02-28 10:24] LABS: ALBUMIN 3.5 g/dl (3.4-5.0); BLOOD UREA NITROGEN 16.6 mg/dL (7-18); CALCIUM 9.5 mg/dL (8.5-10.1); MAGNESIUM 2.2 mg/dL (1.8-2.4)
[2024-02-28 10:27] LABS: PHOSPHOROUS 3.6 mg/dL (2.5-4.9)
[2024-02-28 10:29] LABS: BILIRUBIN,TOTAL 1.3 mg/dL (0.2-1); TOT PROT 7.7 g/dl (6.4-8.2)
[2024-02-29 09:28] LABS: HEMATOCRIT 38.2 % (32.4-45.2); HEMOGLOBIN 12.2 GM/dL (10.7-15.3); MCH 25.7 pg (25.7-33.7); MEAN CELL VOLUME 80.5 fl (80-96); MEAN PLT VOLUME 8.3 fl (7.5-11.1); PLATELET COUNT 289 10^3/uL (134-434); RBC 4.74 M/mm3 (3.60-5.2); RDW 15.1 % (11.6-15.6); WHITE BLOOD COUNT 6.4 K/mm3 (4.0-10.0)
[2024-02-29 09:43] LABS: CALCIUM 9.5 mg/dL (8.5-10.1)
[2024-02-29 09:44] LABS: BLOOD UREA NITROGEN 18.4 mg/dL (7-18); MAGNESIUM 1.9 mg/dL (1.8-2.4)
[2024-02-29 09:48] LABS: CREATININE 1.1 mg/dL (0.55-1.3)
[2024-02-29 15:41] VITALS: BP 152/65; PULSE 66; TEMP 98.2
== END 2024-02-29 20:12 | disposition home health service (06) ==
LOC: JER 04:02 → JERBED 08:36 → J5S 11:56
PROVIDERS: ADMIT Internal Medicine; ATTEND Nurse Practitioner Acute Care
PROC: 3E033NZ Introduction of Analgesics, Hypnotics, Sedatives into Peripheral Vein, Percutaneous Approach (ICD-10-PCS; principal; 2024-02-26)
PROC: 3E023GC Introduction of Other Therapeutic Substance into Muscle, Percutaneous Approach (ICD-10-PCS; 2024-02-26)
PROC: 3E033GC Introduction of Other Therapeutic Substance into Peripheral Vein, Percutaneous Approach (ICD-10-PCS; 2024-02-26)
PROC: 3E0337Z Introduction of Electrolytic and Water Balance Substance into Peripheral Vein, Percutaneous Approach (ICD-10-PCS; 2024-02-26)
DX: I16.0 Hypertensive urgency (principal); R42 Dizziness and giddiness; G30.9 Alzheimer's disease, unspecified; R09.89 Other specified symptoms and signs involving the circulatory and respiratory systems; I95.1 Orthostatic hypotension; G31.9 Degenerative disease of nervous system, unspecified; E78.5 Hyperlipidemia, unspecified
CPT/HCPCS: 0241U-QW; 36415; 70450-TC; 71045-TC-FY; 80048; 80053; 81003; 81401; 82607; 83735; 84100; 84443; 84484; 85025; 85027; 85610; 85730; 86780; 87086; 93005; 93010; 93306-TC; 96372; 96374; 96375; 97116-GP; 97161-GP; 99285-25; G0378; J0131; J1644